=== PATIENT | male | born 1950 | race Caucasian/White ===

== ENCOUNTER 2019-12-03 15:09 | Emergency (ER) | payer OTHER, SELFPAY ==
[2019-12-03 15:11] VITALS: BMI 26.6
--- NOTE | 2019-12-03 15:11 | ED_ITS ---
Entered by Sunshine Sibley, acting as scribe for Documented by User: Cristian Novak DO 12/03/19 16:17 HPI - Chest Pain General: Chief Complaint: Chest Pain Stated Complaint: CHEST PAIN Time Seen by Provider: 12/03/19 15:11 Source: EMS Mode of arrival: EMS Limitations: no limitations History of Present Illness: HPI narrative: 69 yo male presents with chest pain. 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 pt was being seen [facility] when he started having chest pain when they gave him Nitro the pt went away. pt states then on the way to hospital he started having pain again and EMS put on Nitro paste. pt denies any other symptoms at this time. MD complaint: chest pain Onset (ago): day(s) (2 days ago) Timing of current episode: still present (better in the ED by Nitro and Nitro paste) Prior episodes: Yes Onset: during rest Pain location: substernal Pain radiation: none Severity: moderate Quality: tightness and heaviness Relieving factors: nitroglycerin Exacerbating factors: nothing Treatment prior to arrival: nitroglycerin (at the [facility]) Review of Systems General: Reports: 10 or more systems reviewed and unremarkable except in HPI and below PFSH ED PFSH: Statuses (acute, chronic, etc) shown below reflect problem list status as previously entered and may not be historically accurate Medical History Blindness (Acute) Surgical History History of amputation of both lower extremities (Acute) History of hernia surgery (Acute) History of tonsillectomy (Acute) Social History Smoking and tobacco status: former smoker Course Vital Signs: Vital signs: Vital Signs Temperature 98.1 F 12/03/19 19:32 Pulse Rate 71 12/03/19 19:32 Respiratory Rate 15 12/03/19 19:32 Blood Pressure 136/84 12/03/19 19:32 Pulse Oximetry 97 12/03/19 19:32 MDM - Chest Pain Lab Data: Labs: Lab Results 12/03/19 12/03/19 12/03/19 Range/Units 14:58 14:58 14:58 WBC 6.6 (4.0-10.0) 10^3/ uL RBC 2.93 L (4.1-5.3) 10^6/u L Hgb 8.9 L (11.7-16.6) g/dL Hct 28.2 L (42.0-52.0) % MCV 96.2 H (80-94) fL MCH 30.4 (28.0-34.0) pg MCHC 31.6 (30.0-36.0) g/dL RDW 14.6 (12.1-15.1) % Plt Count 232 (130-400) 10^3/c mm MPV 10.2 (7.4-10.4) fL Neut % (Auto) 56.2 % Lymph % (Auto) 32.8 % Granite % (Auto) 7.3 % Eos % (Auto) 2.9 % Baso % (Auto) 0.6 % Neut # (Auto) 3.7 (1.8-7.7) 10^3/u L Lymph # (Auto) 2.2 (0.8-4.8) 10^3/u L Granite # (Auto) 0.5 (0.2-0.9) 10^3/u L Eos # (Auto) 0.2 (0.0-0.8) 10^3/u L Baso # (Auto) 0.0 (0.0-0.1) 10^3/u L Nucleated RBC % (a uto) 0 % Nucleated RBCs # 0.0 /100WBC PT 14.70 H (10.5-13.3) SECO NDS INR 1.11 (0.8-1.2) Sodium 134 L (136-145) mmol/L Potassium 4.4 (3.5-5.1) mmol/L Chloride 97 L (98-107) mmol/L Carbon Dioxide 25 (22-29) mmol/L Anion Gap 16.4 (5-19) BUN 39 H (8-23) mg/dL Creatinine 2.4 H (0.7-1.2) mg/dL GFR Calculation 27.1 L (90-130) mL/min Glucose 181 H (74-106) mg/dL Calcium 9.9 (8.8-10.2) mg/Dl Total Bilirubin 0.3 (0.15-1.2) mg/dL AST 11 (0-40) U/L ALT 6 (0-41) U/L Alkaline Phosphata se 87 (40-130) IU/L Troponin T Baselin e (0-15) ng/mL Troponin T 120 Min eyak (0-15) ng/mL Delta Troponin T (0-10) ABS# NT-Pro-B Natriuret Pep 398 H (0-125) pg/mL Total Protein 9.0 H (6.6-8.7) g/dL Albumin 3.7 (3.5-5.2) g/dL Globulin 5.3 H (1.3-4.6) g/dL 12/03/19 12/03/19 Range/Units 14:58 18:32 WBC (4.0-10.0) 10^3/ uL RBC (4.1-5.3) 10^6/u L Hgb (11.7-16.6) g/dL Hct (42.0-52.0) % MCV (80-94) fL MCH (28.0-34.0) pg MCHC (30.0-36.0) g/dL RDW (12.1-15.1) % Plt Count (130-400) 10^3/c mm MPV (7.4-10.4) fL Neut % (Auto) % Lymph % (Auto) % Granite % (Auto) % Eos % (Auto) % Baso % (Auto) % Neut # (Auto) (1.8-7.7) 10^3/u L Lymph # (Auto) (0.8-4.8) 10^3/u L Granite # (Auto) (0.2-0.9) 10^3/u L Eos # (Auto) (0.0-0.8) 10^3/u L Baso # (Auto) (0.0-0.1) 10^3/u L Nucleated RBC % (a uto) % Nucleated RBCs # /100WBC PT (10.5-13.3) SECO NDS INR (0.8-1.2) Sodium (136-145) mmol/L Potassium (3.5-5.1) mmol/L Chloride (98-107) mmol/L Carbon Dioxide (22-29) mmol/L Anion Gap (5-19) BUN (8-23) mg/dL Creatinine (0.7-1.2) mg/dL GFR Calculation (90-130) mL/min Glucose (74-106) mg/dL Calcium (8.8-10.2) mg/Dl Total Bilirubin (0.15-1.2) mg/dL AST (0-40) U/L ALT (0-41) U/L Alkaline Phosphata se (40-130) IU/L Troponin T Baselin e 26 H (0-15) ng/mL Troponin T 120 Min eyak 25.83 H (0-15) ng/mL Delta Troponin T -0.17 L (0-10) ABS# NT-Pro-B Natriuret Pep (0-125) pg/mL Total Protein (6.6-8.7) g/dL Albumin (3.5-5.2) g/dL Globulin (1.3-4.6) g/dL Discharge Plan Discharge Patient Disposition: Home, Self-Care Clinical Impression: Chest pain Qualifiers: Chest pain type: unspecified Qualified Code(s): R07.9 - Chest pain, unspecified Condition: Stable Prescriptions: No Action cyclobenzaprine 10 mg Tablet 10 mg PO TID PRN (Reason: Pain) RF: 0 carvedilol 25 mg Tablet 12.5 mg PO BID RF: 0 cetirizine 10 mg Tablet 10 mg PO DAILY RF: 0 Calcium 500 500 mg calcium (1,250 mg) Tablet 500 mg PO TID RF: 0 calcitriol 0.5 mcg Capsule See Rx Instructions .ROUTE .COMPLEX RF: 0 epoetin alisa 10,000 unit/mL Solution See Rx Instructions .ROUTE .COMPLEX RF: 0 bisacodyl 5 mg Tablet 10 mg PO BEDTIME PRN (Reason: Constipation) RF: 0 brimonidine-timolol 0.2-0.5 % Drops 1 drp ophthalmic (eye) BID RF: 0 Vitamin D3 2,000 unit Tablet 2,000 unit PO DAILY RF: 0 senna 8.6 mg Tablet 17.2 mg PO BID RF: 0 pravastatin 40 mg Tablet 20 mg PO DAILY RF: 0 methadone 10 mg Tablet 20 mg PO BID RF: 0 clopidogrel 75 mg Tablet 75 mg PO DAILY RF: 0 allopurinol 100 mg Tablet 100 mg PO DAILY RF: 0 pentoxifylline 400 mg Tablet Extended Release 400 mg PO BID RF: 0 MagOx 400 mg (241.3 mg magnesium) Tablet 400 mg PO BID RF: 0 Novolog U-100 Insulin aspart 100 unit/mL Solution 50 unit SUBCUT TID RF: 0 omeprazole 20 mg Capsule,Delayed Release(Dr/Ec) 20 mg PO DAILY RF: 0 aspirin 81 mg Tablet,Chewable 81 mg PO DAILY RF: 0 Lasix 20 mg Tablet 10 mg PO QAM RF: 0 Discharge Orders: Discharge Order (Routine); Ordered 12/03/19 Ordered By: Tl Bowers Referrals: Soren Piña [Family Provider] - 4-7 days Discharge Diet: Advance as tolerated Discharge Activity: Resume usual activity Patient Instructions: Chest Pain (ED) Discharge Date/Time: 12/03/19 19:41 Coding Level of Care Code ED Manager Nuclear for Chg Fwd Exam Problem Focused Documented by User: Tl Bowers MD 12/03/19 19:43 HPI - Chest Pain General: Chief Complaint: Chest Pain Stated Complaint: CHEST PAIN Time Seen by Provider: 12/03/19 15:11 History of Present Illness: Associated symptoms: Deny abdominal pain, dyspnea, fever(s), nausea or vomiting Review of Systems Const: Denies: fever or chills Eyes: Denies: change in vision ENMT: Denies: throat pain or mouth pain Card: Reports: chest pain Resp: Denies: shortness of breath GI: Denies: abdominal pain, nausea, vomiting or diarrhea Musc: Denies: back pain or joint pain Skin/Breast: Denies: rash Neuro: Denies: headache or behavioral changes Psych: Denies: depression Endo: Denies: excessive urination Kip/Lymph: Denies: easy bruising All/Imm: Denies: hives PFSH ED PFSH: Statuses (acute, chronic, etc) shown below reflect problem list status as previously entered and may not be historically accurate Medical History Blindness (Acute) Surgical History History of amputation of both lower extremities (Acute) History of hernia surgery (Acute) History of tonsillectomy (Acute) Social History Smoking and tobacco status: former smoker Physical Exam Const: COMMON NORMALS: no apparent distress and healthy appearing HENMT: COMMON NORMALS: normocephalic and external nose normal HEAD & SCALP: normocephalic NOSE: external nose normal and no nasal discharge (nasal dischage) Eye: COMMON NORMALS: PERRL PUPIL: Yes PERRL Neck/C-Spine: COMMON NORMALS: full ROM and no lymphadenopathy Chest: COMMONS NORMALS: inspection of chest normal Resp: COMMON NORMALS: normal respiratory effort and clear to auscultation bilaterally AUSCULTATION: clear to auscultation bilaterally Cardio: COMMON NORMALS: regular rate and regular rhythm RATE: regular rate RHYTHM: regular rhythm GI: COMMON NORMALS: soft to palpation PALPATION: Yes soft Extremity: COMMON NORMALS: normal to inspection, full ROM and normal capillary refill Psych: COMMON NORMALS: mental status grossly normal and cooperative Skin: COMMON NORMALS: no rashes or lesions noted GENERAL SKIN EXAM: no rashes or lesions noted Course Vital Signs: Vital signs: Vital Signs Temperature 98.1 F 12/03/19 19:32 Pulse Rate 71 12/03/19 19:32 Respiratory Rate 15 12/03/19 19:32 Blood Pressure 136/84 12/03/19 19:32 Pulse Oximetry 97 12/03/19 19:32 MDM - Chest Pain MDM Narrative: Medical decision making narrative: Patient presents here with chest pain that is since resolved. Patient's been well-appearing here and repeat troponin shows no change. EKG is normal as well. Patient is requesting discharge I feel he is stable for discharge. He is to follow-up with primary care doctor in 3 to 5 days return to the ER if worsening. Lab Data: Labs: Lab Results 12/03/19 12/03/19 12/03/19 Range/Units 14:58 14:58 14:58 WBC 6.6 (4.0-10.0) 10^3/ uL RBC 2.93 L (4.1-5.3) 10^6/u L Hgb 8.9 L (11.7-16.6) g/dL Hct 28.2 L (42.0-52.0) % MCV 96.2 H (80-94) fL MCH 30.4 (28.0-34.0) pg MCHC 31.6 (30.0-36.0) g/dL RDW 14.6 (12.1-15.1) % Plt Count 232 (130-400) 10^3/c mm MPV 10.2 (7.4-10.4) fL Neut % (Auto) 56.2 % Lymph % (Auto) 32.8 % Granite % (Auto) 7.3 % Eos % (Auto) 2.9 % Baso % (Auto) 0.6 % Neut # (Auto) 3.7 (1.8-7.7) 10^3/u L Lymph # (Auto) 2.2 (0.8-4.8) 10^3/u L Granite # (Auto) 0.5 (0.2-0.9) 10^3/u L Eos # (Auto) 0.2 (0.0-0.8) 10^3/u L Baso # (Auto) 0.0 (0.0-0.1) 10^3/u L Nucleated RBC % (a uto) 0 % Nucleated RBCs # 0.0 /100WBC PT 14.70 H (10.5-13.3) SECO NDS INR 1.11 (0.8-1.2) Sodium 134 L (136-145) mmol/L Potassium 4.4 (3.5-5.1) mmol/L Chloride 97 L (98-107) mmol/L Carbon Dioxide 25 (22-29) mmol/L Anion Gap 16.4 (5-19) BUN 39 H (8-23) mg/dL Creatinine 2.4 H (0.7-1.2) mg/dL GFR Calculation 27.1 L (90-130) mL/min Glucose 181 H (74-106) mg/dL Calcium 9.9 (8.8-10.2) mg/Dl Total Bilirubin 0.3 (0.15-1.2) mg/dL AST 11 (0-40) U/L ALT 6 (0-41) U/L Alkaline Phosphata se 87 (40-130) IU/L Troponin T Baselin e (0-15) ng/mL Troponin T 120 Min eyak (0-15) ng/mL Delta Troponin T (0-10) ABS# NT-Pro-B Natriuret Pep 398 H (0-125) pg/mL Total Protein 9.0 H (6.6-8.7) g/dL Albumin 3.7 (3.5-5.2) g/dL Globulin 5.3 H (1.3-4.6) g/dL 12/03/19 12/03/19 Range/Units 14:58 18:32 WBC (4.0-10.0) 10^3/ uL RBC (4.1-5.3) 10^6/u L Hgb (11.7-16.6) g/dL Hct (42.0-52.0) % MCV (80-94) fL MCH (28.0-34.0) pg MCHC (30.0-36.0) g/dL RDW (12.1-15.1) % Plt Count (130-400) 10^3/c mm MPV (7.4-10.4) fL Neut % (Auto) % Lymph % (Auto) % Granite % (Auto) % Eos % (Auto) % Baso % (Auto) % Neut # (Auto) (1.8-7.7) 10^3/u L Lymph # (Auto) (0.8-4.8) 10^3/u L Granite # (Auto) (0.2-0.9) 10^3/u L Eos # (Auto) (0.0-0.8) 10^3/u L Baso # (Auto) (0.0-0.1) 10^3/u L Nucleated RBC % (a uto) % Nucleated RBCs # /100WBC PT (10.5-13.3) SECO NDS INR (0.8-1.2) Sodium (136-145) mmol/L Potassium (3.5-5.1) mmol/L Chloride (98-107) mmol/L Carbon Dioxide (22-29) mmol/L Anion Gap (5-19) BUN (8-23) mg/dL Creatinine (0.7-1.2) mg/dL GFR Calculation (90-130) mL/min Glucose (74-106) mg/dL Calcium (8.8-10.2) mg/Dl Total Bilirubin (0.15-1.2) mg/dL AST (0-40) U/L ALT (0-41) U/L Alkaline Phosphata se (40-130) IU/L Troponin T Baselin e 26 H (0-15) ng/mL Troponin T 120 Min eyak 25.83 H (0-15) ng/mL Delta Troponin T -0.17 L (0-10) ABS# NT-Pro-B Natriuret Pep (0-125) pg/mL Total Protein (6.6-8.7) g/dL Albumin (3.5-5.2) g/dL Globulin (1.3-4.6) g/dL Imaging Data^: CXR: Radiologist's impression: no acute abnormalities EKG Data^: EKG 1: Attestation: I personally reviewed and interpreted this EKG as follows: EKG interpretation date: 12/03/19 EKG interpretation time: 17:38 Interpretation: nsr hr [address] or t wave abnormalities qrs 91 qtc 423 Discharge Plan Discharge Patient Disposition: Home, Self-Care Clinical Impression: Chest pain Qualifiers: Chest pain type: unspecified Qualified Code(s): R07.9 - Chest pain, unspecified Condition: Stable Prescriptions: No Action cyclobenzaprine 10 mg Tablet 10 mg PO TID PRN (Reason: Pain) RF: 0 carvedilol 25 mg Tablet 12.5 mg PO BID RF: 0 cetirizine 10 mg Tablet 10 mg PO DAILY RF: 0 Calcium 500 500 mg calcium (1,250 mg) Tablet 500 mg PO TID RF: 0 calcitriol 0.5 mcg Capsule See Rx Instructions .ROUTE .COMPLEX RF: 0 epoetin alisa 10,000 unit/mL Solution See Rx Instructions .ROUTE .COMPLEX RF: 0 bisacodyl 5 mg Tablet 10 mg PO BEDTIME PRN (Reason: Constipation) RF: 0 brimonidine-timolol 0.2-0.5 % Drops 1 drp ophthalmic (eye) BID RF: 0 Vitamin D3 2,000 unit Tablet 2,000 unit PO DAILY RF: 0 senna 8.6 mg Tablet 17.2 mg PO BID RF: 0 pravastatin 40 mg Tablet 20 mg PO DAILY RF: 0 methadone 10 mg Tablet 20 mg PO BID RF: 0 clopidogrel 75 mg Tablet 75 mg PO DAILY RF: 0 allopurinol 100 mg Tablet 100 mg PO DAILY RF: 0 pentoxifylline 400 mg Tablet Extended Release 400 mg PO BID RF: 0 MagOx 400 mg (241.3 mg magnesium) Tablet 400 mg PO BID RF: 0 Novolog U-100 Insulin aspart 100 unit/mL Solution 50 unit SUBCUT TID RF: 0 omeprazole 20 mg Capsule,Delayed Release(Dr/Ec) 20 mg PO DAILY RF: 0 aspirin 81 mg Tablet,Chewable 81 mg PO DAILY RF: 0 Lasix 20 mg Tablet 10 mg PO QAM RF: 0 Discharge Orders: Discharge Order (Routine); Ordered 12/03/19 Ordered By: Tl Bowers Referrals: Soren Piña [Family Provider] - 4-7 days Discharge Diet: Advance as tolerated Discharge Activity: Resume usual activity Patient Instructions: Chest Pain (ED) Discharge Date/Time: 12/03/19 19:41 Coding Level of Care Code ED Manager Nuclear for Doris Fwmax Exam Problem Focused
[2019-12-03 15:15] VITALS: BP 110/68; PULSE 75; RESP 18; TEMP 37.2; O2SAT 98
--- NOTE | 2019-12-03 15:23 | XR_ITS ---
WS: [id number] PORTABLE CHEST HISTORY: angina COMPARISON: 03/07/2018 Areas of atelectasis at the lung bases. No pneumonia. No pleural effusion or pneumothorax. Cardiac size: Mildly enlarged cardiac silhouette. Mediastinum/Aorta: Mild atherosclerosis aorta. No osseous abnormality seen. XR/XR chest 1V portable [id number] IMPRESSION: Mild atelectasis at the lung bases. No acute cardiopulmonary disease.
--- NOTE | 2019-12-03 15:23 | ECG_ITS ---
Measurements Intervals [place] Rate: 74 P: 78 OR: 200 QRS: -20 QRSD: 94 T: 30 QT: 390 QTc: 434 SINUS RHYTHM MODERATE VOLTAGE CRITERIA FOR LVH, CONSIDER NORMAL VARIANT [MEETS CRITERIA IN ONE OF: R(aVL), S(V1), R(V5), R(V5/V6)+S(V1)] Compared to ECG 03/02/2018 16:11:08 No significant changes Electronically Signed On 12-03-2019 19:22:21 ORTHOPEDICS NURSE by Miguelina Dash M.D. [id number]
[2019-12-03] MEDS: sodium chloride 0.9% 500 ML 999 ML IV (15:50)
[2019-12-03] MEDS: sodium chloride 0.9% 1,000 ML 999 ML IV (15:50)
[2019-12-03 16:59] LABS: Troponin(5th) Baseline 26 ng/mL (0-15)
[2019-12-03 17:02] LABS: Basophils % 0.6 %; Eosinophils # 0.2 10^3/uL (0.0-0.8); Eosinophils % 2.9 %; Hematocrit 28.2 % (42.0-52.0); Hemoglobin 8.9 g/dL (11.7-16.6); Lymphocytes # 2.2 10^3/uL (0.8-4.8); Lymphocytes % 32.8 %; Mean Corpuscular HGB Conc 31.6 g/dL (30.0-36.0); Mean Corpuscular Hemoglobin 30.4 pg (28.0-34.0); Mean Corpuscular Volume 96.2 fL (80-94); Mean Platelet Volume 10.2 fL (7.4-10.4); Monocytes # 0.5 10^3/uL (0.2-0.9); Monocytes % 7.3 %; Neutrophils # 3.7 10^3/uL (1.8-7.7); Neutrophils % 56.2 %; Nucleated Red Blood Cells % 0 %; Platelet Count 232 10^3/cmm (130-400); Red Blood Count 2.93 10^6/uL (4.1-5.3); Red Cell Distribution Width 14.6 % (12.1-15.1); White Blood Count 6.6 10^3/uL (4.0-10.0)
[2019-12-03 17:08] LABS: Alanine Aminotransferase 6 U/L (0-41); Albumin Level 3.7 g/dL (3.5-5.2); Alkaline Phosphatase 87 IU/L (40-130); Anion Gap 16.4 (5-19); Aspartate Amino Transferase 11 U/L (0-40); Blood Urea Nitrogen 39 mg/dL (8-23); Calcium 9.9 mg/Dl (8.8-10.2); Carbon Dioxide 25 mmol/L (22-29); Chloride 97 mmol/L (98-107); Globulin 5.3 g/dL (1.3-4.6); Glomerular Filtration Rate 27.1 mL/min (90-130); Glucose 181 mg/dL (74-106); NT Pro B Type Natriuretic Pept 398 pg/mL (0-125); Potassium 4.4 mmol/L (3.5-5.1); Sodium 134 mmol/L (136-145); Total Bilirubin 0.3 mg/dL (0.15-1.2)
[2019-12-03 17:24] LABS: INR 1.11 (0.8-1.2)
[2019-12-03 19:08] LABS: Troponin 5 2HR 25.83 ng/mL (0-15)
[2019-12-03 19:10] LABS: Troponin 5 2HR Delta -0.17 ABS# (0-10)
[2019-12-03 19:32] VITALS: BP 136/84; PULSE 71; RESP 15; TEMP 36.7; O2SAT 97
--- NOTE | 2019-12-03 21:23 | ECG_ITS ---
Measurements Intervals [place] Rate: 74 P: 243 [place]: 201 QRS: -9 QRSD: 91 T: 40 QT: 395 QTc: 440 SINUS RHYTHM Compared to ECG 03/02/2018 16:11:08 No significant changes Electronically Signed On 12-03-2019 19:23:34 PATROL MAN by Miguelina Dash M.D. [id number]
== END 2019-12-03 19:41 | disposition home or self-care (01) ==
PROVIDERS: Family Medicine; Emergency Provider Emergency Medicine; Family Provider Internal Medicine
DX: R07.9 Chest pain, unspecified (principal); Z79.02 Long term (current) use of antithrombotics/antiplatelets; Z79.4 Long term (current) use of insulin; Z79.82 Long term (current) use of aspirin; Z87.891 Personal history of nicotine dependence; Z89.612 Acquired absence of left leg above knee; Z89.611 Acquired absence of right leg above knee
CPT/HCPCS: 36415; 71045; 80053; 83880; 84484; 85025; 85610; 93005; 96360; 96361; 99282; J7030; J7040

== ENCOUNTER 2020-02-06 09:38 | Outpatient (CLI) | payer OTHER, SELFPAY ==
--- NOTE | 2020-02-06 10:03 | ECG_ITS ---
NAME OF STUDY: LEXISCAN SESTAMIBI STRESS TEST INDICATION: Chest Pain; Shortness of Breath, PROCEDURE: At the baseline, the EKG revealed normal sinus rhythm with a left axis deviation. No significant ST-T changes.. The baseline blood pressure was 141/98 mm Hg with a heart rate of 80 beats/min. Lexiscan was infused over a period of 20 seconds. A total of 0.4 milligrams of Lexiscan was infused. The stress phase was continued for a total of 5 minutes. Heart rate at the end of the stress phase was 84 with a blood pressure 182/98. The EKG at the peak infusion revealed no significant changes. Sestamibi was injected 20 seconds after the Lexiscan infusion. Blood pressure at the end of the recovery phase was 165/94 with a heart rate of 84 per minute. CONCLUSION: 1. No significant EKG changes with the LexiScan infusion 2. No LexiScan induced chest pain or cardiac arrhythmia 3. Normal blood pressure and heart rate response 4. Sestamibi/sestamibi perfusion scan pending; see separate report. Electronically Signed On 02-15-2020 14:29:55 CDT by Steve Ramachandran M.D. [id number]
--- NOTE | 2020-02-06 10:04 | NMCV_ITS ---
NM braulio perf SPECT r/s* [id number] Juan Antonio Das Age: 69 Gender: M : 1950 Exam Date: 02/06/2020 10:59 Ordering Phys: Steve Ramachandran MD ([email or web address]) Technologist: MATTHIEU Del Castillo Exam Location: [facility] Indications: CHEST PAIN STRESS TEST Please see separate stress test report in [facility] for full findings IMAGE PROTOCOL Rest/Stress 1 Lexiscan Day Radiopharmaceutical Dose (mCi) Administration Site Administered by Rest: Tc-99m 10.1 IV MATTHIEU Franz Sestamibi Stress:Tc-99m 31.6 IV MATTHIEU Del Castillo Sestamilaine Rest: 06-Feb-2020 60 Discovery 630 Stress: 06-Feb-2020 30 Discovery 630 0.4mg Lexiscan. Supine position only as patient was unable to lay prone. SPECT RESULTS Technical Quality: Excellent Raw Data Analysis: Normal Image Corrections: No attenuation or motion correction applied Summed Stress Score: 3 Summed Rest Score: 0 Summed Difference Score: 3 PERFUSION FINDINGS Small to moderate area of decreased tracer uptake in the mid inferolateral and apical lateral wall segments. Some reversibility was noted in these regions. FUNCTIONAL RESULTS (calculated via Gated SPECT) Stress Image LV EF (%): 62 Stress EDV (mL):115 TID: 0.99 Stress ESV (mL):44 FUNCTIONAL FINDINGS: Segmental wall motion analysis revealed mild hypokinesia of the apex IMPRESSIONS 1. Myocardial perfusion imaging revealing small to moderate area of decreased tracer uptake in the mid inferolateral and apical lateral region, with some reversibility, suggestive of myocardial scarring with ischemia in the distribution of the left circumflex artery. 2. Normal LV ejection fraction of 62%. 3. LV wall motion analysis revealing mild hypokinesia of the LV apex. 4. LV volume, upper limit of normal. No similar previous studies are available for comparison. Dr Steve Ramachandran MD FACC (Electronically Signed) Final Date: 06 February 2020 14:27 S
--- NOTE | 2020-02-06 10:07 | USCV_ITS ---
Juan Antonio Das Age: 69 Gender: M : 1950 Exam Date: 02/06/2020 12:54 Ordering Phys: Steve Ramachandran MD ([email or web address]) Technologist: Preeti Zazueta [place] [facility] [place]: . CHEST PAIN AT REST. BP: / HR: 82 Rhythm: Sinus Technical Quality: Adequate MEASUREMENTS (Male / Female) Normal Values 2D ECHO LV Diastolic Diameter PLAX 4.6 cm 4.2 - 5.9 / 3.9 - 5.3 cm LV Systolic Diameter PLAX 3.3 cm LV Chamber Size 4.2 cm IVS Diastolic Thickness 1.5 cm 0.6 - 1.0 / 0.6 - 0.9 cm IVS Systolic Thickness 1.7 cm LVPW Diastolic Thickness 0.6 cm 0.6 - 1.0 / 0.6 - 0.9 cm LVPW Systolic Thickness 1.7 cm RV Chamber Size 3.8 cm LVOT Diameter 2.0 cm LV Ejection Fraction 2D Teich 53.6 % LV Ejection Fraction MOD 2C 55.4 % LV Ejection Fraction 2C AL 57.4 % LA Diameter 3.9 cm LA Width 3.1 cm LA Height 3.8 cm RA Width 3.8 cm RA Height 3.6 cm Aorta at Sinotubular Diameter 3.5 cm M-MODE LV Diastolic Diameter MM 4.7 cm 4.2 - 5.9 / 3.9 - 5.3 cm LV Systolic Diameter MM 3.4 cm LV Ejection Fraction MM Teich 54.7 % IVS Diastolic Thickness MM 1.4 cm 0.6 - 1.0 / 0.6 - 0.9 cm IVS Systolic Thickness MM 1.7 cm LVPW Diastolic Thickness MM 1.5 cm 0.6 - 1.0 / 0.6 - 0.9 cm LVPW Systolic Thickness MM 2.2 cm RV Diastolic Diameter MM 1.1 cm Aortic Annulus Diameter 3.8 cm LA Ao Ratio MM 1.0 MV E Point Septal Separation 0.7 cm DOPPLER AV Peak Velocity 118.0 cm/s LVOT Peak Velocity 83.0 cm/s AV Area Cont Eq vti 2.5 cm squared AV Area Cont Eq pk 2.2 cm squared MV Area PHT 8.5 cm squared Mitral E to A Ratio 0.6 MV E' Velocity 7.0 cm/s Mitral E to MV E' Ratio 13.4 Mitral E to LV E' Lateral Ratio 10.3 Mitral E to LV E' Septal Ratio 19.4 TR Peak Velocity 144.8 cm/s TR Peak Gradient 8.4 mmHg TR Mean Velocity 82.2 cm/s TR Mean Gradient 3.4 mmHg TR Velocity Time Integral 35.9 cm TV Peak E Velocity 86.0 cm/s Right Atrial Pressure 3.0 mmHg Pulmonary Artery Systolic Pressu 11.4 mmHg PV Peak Velocity 74.0 cm/s RV Acceleration Time 0.1 s RV Ejection Time 0.3 s RV AcT/ET 0.3 FINDINGS Left Ventricle Normal left ventricular size and systolic function, EF 61 %. No regional wall motion abnormalities. Right Ventricle The right ventricle is normal in size and function. Right Atrium The right atrium is normal in size. Left Atrium The left atrium is normal in size. Mitral Valve Thickened mitral valve. Mild mitral annular calcification. Aortic Valve No gross abnormalities noted Tricuspid Valve Trace tricuspid valve regurgitation. Pulmonic Valve Structurally normal pulmonic valve without significant stenosis. There is no pulmonic regurgitation. Pericardium Normal pericardium without effusion. Aorta Normal ascending aorta dimension. CONCLUSIONS Normal left ventricular size and systolic function, EF 61 %. No regional wall motion abnormalities. Thickened mitral valve. Mild mitral annular calcification. Trace tricuspid valve regurgitation. There is no pericardial effusion. There are no intracardiac masses. No similar previous studies are available for comparison Dr Steve Ramachandran MD FAC (Electronically Signed) Final Date: 06 February 2020 14:50 S
[2020-02-06] MEDS: regadenoson 0.4 Mg/5 ml Syringe IVP (11:46)
[2020-02-06] MEDS: ondansetron 2 mg/ML SDV 2 mL 4 MG IVP (11:51)
[2020-02-06 12:01] VITALS: BP 168/94; PULSE 84
== END 2020-02-06 09:39 | disposition home or self-care (01) ==
LOC: CDL 09:40
PROVIDERS: Family Provider Internal Medicine; PCP Internal Medicine; Visit Provider Internal Medicine Cardiovascular Disease
DX: I08.1 Rheumatic disorders of both mitral and tricuspid valves (principal); I70.0 Atherosclerosis of aorta; R07.9 Chest pain, unspecified; R06.02 Shortness of breath
CPT/HCPCS: 78452; 93017; 93306; 96374; 96375; A9500; J2405; J2785

== ENCOUNTER 2020-10-09 18:25 | Outpatient (CLI) | payer OTHER, SELFPAY ==
[2020-10-09 18:39] LABS: Protein Urine 1+ (Negative); Urine Appearance Hazy (CLEAR); Urine Color Yellow (Yellow); pH Urine 5 (5-7)
[2020-10-09 18:40] LABS: Add Urine Microscopic? YES; Bilirubin Urine Neg (Negative); Blood Urine 3+ (Negative); Glucose Urine UA 4+ (Normal); Ketones Urine Negative (Negative); Leukocyte Esterase Urine 1+ (Negative); Nitrate Urine Negative (Negative); Urobilinogen Urine Norm (Negative)
[2020-10-09 18:46] LABS: Add Urine Culture? Yes; Bacteria Urine 1+ /hpf; RBC Urine 25-40 /hpf (0-2); Squamous Epithelial Cell Urine 0-4 /hpf (0-5); WBC Urine 0-4 /hpf (0-5)
== END 2020-10-09 18:26 | disposition home or self-care (01) ==
PROVIDERS: PCP Internal Medicine; Visit Provider Family Medicine
DX: Z01.89 Encounter for other specified special examinations (principal)
CPT/HCPCS: 81001; 87077; 87086; 87186

== ENCOUNTER 2021-03-07 20:24 | Emergency (ER) | payer OTHER, SELFPAY ==
[2021-03-07 20:44] VITALS: BP 146/80; PULSE 92; RESP 16; TEMP 37.3; O2SAT 98; BMI 26.4
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
[2021-03-07] MEDS: neomycin-poly-bacitracin oint 0.9 gm Pkt 1 APPLIC TOPICAL (23:00)
[2021-03-07] MEDS: cephALEXin 500 mg Capsule PO (23:00)
[2021-03-07 23:20] VITALS: BP 137/80; PULSE 70; RESP 18
--- NOTE | 2021-03-07 23:32 | PC.NURSE ---
Wounds were cleaned, and antibiotic ointment was applied, then xeroform dressing on all fingers then each finger was wrapped in kerlex. Patient was educated on how to do dressing changes at home until he was able to see wound care for further instructions
--- NOTE | 2021-03-08 11:16 | DCPLANNER ---
bed manager had message to schedule a follow up appointment for patient with Wound Care. bed manager called [facility], spoke with Lizbeth, was told that patient may be being seen at [facility] with a CT authorization. bed manager called patient to ask patient which clinic he wanted to be referred to. Patient stated that he would like to be seen by Dr. Wilhelm at [facility]. bed manager emailed patients information will be reviewed to determine if patient can be seen by Dr. Wilhelm. Patients information will be reviewed. bed manager was told that CT will contact patient about appointment information.
== END 2021-03-07 23:37 | disposition home or self-care (01) ==
PROVIDERS: Emergency Provider Physician Assistant; PCP Internal Medicine
DX: T23.242A Burn of second degree of multiple left fingers (nail), including thumb, initial encounter (principal); Z79.02 Long term (current) use of antithrombotics/antiplatelets; Z79.82 Long term (current) use of aspirin; Z79.4 Long term (current) use of insulin; Z89.512 Acquired absence of left leg below knee; Z89.511 Acquired absence of right leg below knee; I10 Essential (primary) hypertension; E11.9 Type 2 diabetes mellitus without complications; E78.5 Hyperlipidemia, unspecified; Z87.891 Personal history of nicotine dependence; X11.8XXA Contact with other hot tap-water, initial encounter
CPT/HCPCS: 16020; 99283; A6446

== ENCOUNTER 2021-04-15 10:30 | Inpatient (IN) | payer OTHER, MEDICARE, SELFPAY ==
[2021-04-15] VITALS (7 sets, daily range): BP systolic 131–192; BP diastolic 62–98; PULSE 72–90; RESP 15–22; TEMP 36.6–37.6; O2SAT 92–100; BMI 27.1
--- NOTE | 2021-04-15 10:56 | W.ED.MALEGU ---
HPI - Male Genitourinary General: Chief complaint: Urogenital-Male Stated complaint: BLOOD IN CATH Time Seen by Provider: 04/15/21 10:40 History of Present Illness: HPI Narrative: 70-year-old male with a history of diabetes peripheral artery disease neurogenic bladder. He has an indwelling suprapubic Urena. Urena was changed yesterday and he had some blood-tinged urine after it was changed overnight it became grossly hematuric. He denies any flank pain. No fever sweats or chills. No nausea vomiting or diarrhea. Complaint: dysuria Onset (ago): hour(s) Duration: constant Relieving factors: none Exacerbating factors: none Context: indwelling catheter Associated symptoms: Reports hematuria; Deny discharge, dysuria, fevers/chills, nausea, rash, swelling, urinary incontinence, urinary retention, mass or vomiting Review of Systems Const: Denies: fever(s), chills, body aches, change in appetite, fatigue or malaise ENMT: Denies: throat pain, ear or mastoid pain, nasal discharge or nasal congestion Card: Denies: chest pain, edema, dyspnea on exertion or orthopnea Resp: Denies: dyspnea, productive cough or non-productive cough GI: Denies: nausea or vomiting : Reports: hematuria; Denies: dysuria or urinary incontinence Skin/Breast: Denies: rash or pruritus [facility] ED PFSH: Medical History (Updated 04/15/21 @ 19:57 by Torie Gonzales MD) Abnormal cardiovascular stress test Anemia Below-knee amputation august 2019; left 2005 Benign essential HTN for 30 yrs Blind right eye Blindness Blindness and low vision Chest pain at rest The EKG from 12/03/2019 revealed normal sinus rhythm with normal ST-T's. Minimal left axis deviation. Depression Diabetes mellitus, type II Dyslipidemia Indwelling Urena catheter calcification Peripheral arterial disease Sleep apnea Type 2 diabetes mellitus treated with insulin Surgical History History of amputation of both lower extremities History of hernia surgery History of tonsillectomy Social History Smoking and tobacco status: former smoker Physical Exam Const: COMMON NORMALS: no acute distress GENERAL APPEARANCE: cooperative and comfortable ORIENTATION/CONSCIOUSNESS: Yes awake, Yes oriented to person, Yes oriented to place and Yes oriented to time HENMT: COMMON NORMALS: normocephalic, atraumatic and hearing grossly normal bilaterally HEAD & SCALP: normocephalic and atraumatic Neck/C-Spine: COMMON NORMALS: no JVD Resp: COMMON NORMALS: normal respiratory effort, No retractions, No use of accessory muscles and clear to auscultation bilaterally AUSCULTATION: clear to auscultation bilaterally Cardio: COMMON NORMALS: no JVD, regular rate, regular rhythm and No murmurs present (Cardio) RATE: regular rate RHYTHM: regular rhythm GI: COMMON NORMALS: Soft to palpation and No hepatosplenomegaly present AUSCULTATION: Yes normoactive bowel sounds PALPATION: Yes Soft to palpation, No Tenderness to palpation present (GI), No Guarding due to palpation present (GI) and Yes No hepatosplenomegaly present Extremity: COMMON NORMALS: normal to inspection, capillary refill normal, no clubbing, cyanosis or edema, no calf tenderness and no pedal edema Neuro: SENSORIUM/ORIENTATION: Yes oriented to person, Yes oriented to place and Yes oriented to time Skin: COMMON NORMALS: no rashes or lesions noted GENERAL SKIN EXAM: no rashes or lesions noted Course Vital Signs: Vital signs: Vital Signs Temperature 98.7 F 04/16/21 08:00 Pulse Rate 75 04/16/21 08:00 Respiratory Rate 18 04/16/21 08:00 Blood Pressure 157/86 04/16/21 08:00 Pulse Oximetry 98 04/16/21 08:00 MDM - Male MDM Narrative: Medical decision making narrative: Hematuria improved after irrigation. Patient is fairly significant anemia but it is a chronic problem encourage him to follow-up next week with his primary care doctor repeat hemoglobin also to follow-up with urologist to reevaluate he does have signs of a little bladder infection with positive leukocyte esterase. We will start him on some oral antibiotics. Lab Data: Labs: Lab Results 04/15/21 04/15/21 04/15/21 Range/Units 11:10 11:10 11:10 WBC 6.2 (4.0-10.0) 10^3/ uL RBC 2.62 L (4.1-5.3) 10^6/u L Hgb 8.7 L (11.7-16.6) g/dL Hct 26.7 L (42.0-52.0) % MCV 101.9 H (80-94) fL MCH 33.2 (28.0-34.0) pg MCHC 32.6 (30.0-36.0) g/dL RDW 15.5 H (12.1-15.1) % Plt Count 126 L (130-400) 10^3/c mm MPV 10.2 (7.4-10.4) fL Neut % (Auto) 59.7 % Lymph % (Auto) 27.8 % Irion % (Auto) 8.1 % Eos % (Auto) 3.4 % Baso % (Auto) 0.8 % Neut # (Auto) 3.67 (1.8-7.7) 10^3/u L Lymph # (Auto) 1.7 (0.8-4.8) 10^3/u L Irion # (Auto) 0.5 (0.2-0.9) 10^3/u L Eos # (Auto) 0.2 (0.0-0.8) 10^3/u L Baso # (Auto) 0.1 (0.0-0.1) 10^3/u L Nucleated RBC % (a uto) 0 % Nucleated RBCs # 0.0 /100WBC Sodium 138 (136-145) mmol/L Potassium 5.4 H (3.5-5.1) mmol/L Chloride 107 (98-107) mmol/L Carbon Dioxide 20 L (22-29) mmol/L Anion Gap 16.4 (5-19) BUN 55 H (8-23) mg/dL Creatinine 3.4 H (0.7-1.2) mg/dL GFR Calculation 18.0 L (90-130) mL/min Glucose 168 H (65-115) mg/dL Calculated Osmolal ity 305 H (285-295) mOsm/k g Calcium 9.2 (8.5-10.5) mg/dL Urine Color Red (Yellow) Urine Appearance Turbid (CLEAR) Urine pH 5 (5-7) Ur Specific Gravit y 1.010 (1.005-1.030) Urine Protein 2+ H (Negative) Urine Glucose (UA) 1+ (Normal) Urine Ketones Negative (Negative) Urine Blood Neg (Negative) Urine Nitrate Negative (Negative) Urine Bilirubin Neg (Negative) Urine Urobilinogen Norm (Negative) mg/dL Ur Leukocyte Chika ase 1+ H (Negative) Urine RBC Too numerous to c nt H (0-2) /hpf Urine WBC 0-4 H (0-5) /hpf Ur Squamous Epith Cells 0-4 H (0-5) /hpf Amorphous Sediment Not Reportable Urine Bacteria 1+ H (NONE) /hpf Discharge Plan Discharge Patient Disposition: Placed in Observation Admit Provider: Torie Gonzales Clinical Impression: Hematuria, Urinary tract infection, Chronic indwelling Urena catheter Discharge Diet: Usual diet Discharge Activity: Resume usual activity Coding Level of Care Code ED It Project Manager for Chg Fwd Exam Comprehensive
[2021-04-15 11:23] LABS: Basophils # 0.1 10^3/uL (0.0-0.1); Basophils % 0.8 %; Eosinophils # 0.2 10^3/uL (0.0-0.8); Eosinophils % 3.4 %; Hematocrit 26.7 % (42.0-52.0); Hemoglobin 8.7 g/dL (11.7-16.6); Lymphocytes # 1.7 10^3/uL (0.8-4.8); Lymphocytes % 27.8 %; Mean Corpuscular HGB Conc 32.6 g/dL (30.0-36.0); Mean Corpuscular Hemoglobin 33.2 pg (28.0-34.0); Mean Corpuscular Volume 101.9 fL (80-94); Mean Platelet Volume 10.2 fL (7.4-10.4); Monocytes # 0.5 10^3/uL (0.2-0.9); Monocytes % 8.1 %; Neutrophils # 3.67 10^3/uL (1.8-7.7); Neutrophils % 59.7 %; Nucleated Red Blood Cells % 0 %; Platelet Count 126 10^3/cmm (130-400); Red Blood Count 2.62 10^6/uL (4.1-5.3); Red Cell Distribution Width 15.5 % (12.1-15.1); White Blood Count 6.2 10^3/uL (4.0-10.0)
[2021-04-15 11:25] LABS: Add Urine Microscopic? YES; Bilirubin Urine Neg (Negative); Blood Urine Neg (Negative); Glucose Urine UA 1+ (Normal); Ketones Urine Negative (Negative); Leukocyte Esterase Urine 1+ (Negative); Nitrate Urine Negative (Negative); Protein Urine 2+ (Negative); Urine Appearance Turbid (CLEAR); Urine Color Red (Yellow); Urobilinogen Urine Norm (Negative); pH Urine 5 (5-7)
[2021-04-15 11:43] LABS: Add Urine Culture? Yes; Bacteria Urine 1+ /hpf; RBC Urine TOO NUMEROUS TO CNT /hpf (0-2); Squamous Epithelial Cell Urine 0-4 /hpf (0-5); WBC Urine 0-4 /hpf (0-5)
[2021-04-15 11:57] LABS: Anion Gap 16.4 (5-19); Blood Urea Nitrogen 55 mg/dL (8-23); Calcium 9.2 mg/dL (8.5-10.5); Carbon Dioxide 20 mmol/L (22-29); Chloride 107 mmol/L (98-107); Glucose 168 mg/dL (65-115); Osmolality Calculated 305 mOsm/kg (285-295); Potassium 5.4 mmol/L (3.5-5.1); Sodium 138 mmol/L (136-145)
[2021-04-15] MEDS: sodium chloride 0.9% 1,000 ML 999 ML IV (12:31)
--- NOTE | 2021-04-15 19:52 | PM.HP ---
Providers/Chief Complaint Admitting Physician: Torie Gonzales MD Primary Care Provider: Brian Piña Chief Complaint: BLOOD IN CATH History of Present Illness Juan Antonio Das is a 70 year old male with past medical history as outlined below who has a chronic indwelling suprapubic catheter since at least 2011 that gets changed every 3 to 4 weeks by his home health nurse. He is presenting from home today with chief complaints of hematuria. His nurse came to change his catheter yesterday, insertion was difficult and attempted 2-3 times and ultimately catheter was downsized for insertion. This morning when he woke up he noticed brian blood and presented to the emergency room. Here UA was positive. There is noted to be some slight discharge around his suprapubic catheter insertion site. Creatinine is higher than baseline and he has other electrolyte abnormalities by way of hyperkalemia, anemia and VIV. Denies any fever at home. Suspects he may have had a recent UTI, was supposed to get a UA and urine culture however this has not happened yet. Review of Systems General: Reports: 10 or more systems reviewed and unremarkable except in HPI and below Const: Denies: fever(s), chills or body aches Eyes: Denies: change in vision, blurry vision or photophobia ENMT: Reports: hoarseness; Denies: throat pain, enlarged tonsils, odynophagia or nasal congestion Card: Denies: chest pain, palpitations, irregular heart rhythm, edema, swelling of feet/ankles, lightheadedness, pre-syncope, dyspnea on exertion or orthopnea Resp: Denies: dyspnea, productive cough, non-productive cough, wheezing, stridor, pain on inspiration, change in phlegm color, hemoptysis or chest congestion GI: Denies: abdominal pain, nausea, vomiting, hematemesis, coffee ground emesis, dysphagia, heartburn, diarrhea, constipation, GI cramping, change in stool character, hematochezia or melena : Denies: flank pain, dysuria, urinary frequency, urinary urgency, urinary hesitancy or hematuria Musc: Denies: neck pain, back pain, extremity pain, joint swelling, joint warmth or deformity Neuro: Denies: headache(s), numbness in extremities, weakness in extremities, sensory changes, difficulty walking, frequent falls, dizziness, vertigo, behavioral changes, Slurred speech present or seizure-like activity Psych: Denies: anxiety, depression, suicidal ideation or homicidal ideation Endo: Denies: polyuria, polydipsia, tired all the time, cold intolerance or hot flashes Kip/Lymph: Denies: easy bruising or easy bleeding Medications/Allergies Home Medications Medication Instructions Recorded Confirmed Last Taken Type allopurinol 100 mg PO DAILY 12/03/19 04/15/21 04/14/21 History aspirin 81 mg PO DAILY 12/03/19 04/15/21 04/14/21 History bisacodyl 10 mg PO BEDTIME PRN 12/03/19 04/15/21 12/02/19 History brimonidine-timolol 1 drp OPHTHALMIC (EYE) BID 12/03/19 04/15/21 04/14/21 History calcitriol See Rx Instructions .ROUTE .COMPLEX 12/03/19 04/15/21 04/13/21 History calcium carbonate [Calcium 500] 500 mg PO TID 12/03/19 04/15/21 04/14/21 History cetirizine 10 mg PO DAILY 12/03/19 04/15/21 04/14/21 History cholecalciferol (vitamin D3) 2,000 unit PO DAILY 12/03/19 04/15/21 04/14/21 History [Vitamin D3] cyclobenzaprine 10 mg PO TID PRN 12/03/19 04/15/21 12/02/19 History epoetin alisa See Rx Instructions .ROUTE .COMPLEX 12/03/19 04/15/21 04/14/21 History insulin aspart U-100 [Novolog 50 unit SUBCUT QID 12/03/19 04/15/21 04/14/21 History U-100 Insulin aspart] magnesium oxide [MagOx] 400 mg PO BID 12/03/19 04/15/21 04/14/21 History omeprazole 20 mg PO DAILY 12/03/19 04/15/21 04/14/21 History pentoxifylline 400 mg PO BID 12/03/19 04/15/21 04/14/21 History sennosides [senna] 17.2 mg PO BID 12/03/19 04/15/21 04/14/21 History carvedilol 25 mg tablet 25 mg PO BID 90 Days #180 tab 10/28/20 04/15/21 04/14/21 Rx clopidogrel 75 mg tablet 75 mg PO DAILY 30 Days #30 tab 10/28/20 04/15/21 04/14/21 Rx furosemide 20 mg tablet 10 mg PO QAM 180 Days #90 tab 10/28/20 04/15/21 04/14/21 Rx pravastatin 40 mg tablet 20 mg PO DAILY 30 Days #30 tab 10/28/20 04/15/21 04/14/21 Rx cqrkvspu-gztawquytXc-alyzfhzmV 1 applic TOPICAL BID #30 g 03/07/21 04/15/21 Unknown Rx [Triple Antibiotic] ciprofloxacin HCl [Cipro] 500 mg PO BID #14 tab 04/15/21 Unknown Rx methadone 5 mg PO QID 04/15/21 04/15/21 04/14/21 History Allergies Allergy/AdvReac Type Severity Reaction Status Date / Time doxycycline Allergy Unknown Unverified 08/07/20 07:26 Penicillins Allergy Unknown Verified 12/03/19 15:22 PFSH Acute PFSH: Medical History (Updated 04/15/21 @ 19:57 by Torie Gonzales MD) Abnormal cardiovascular stress test Anemia Below-knee amputation august 2019; left 2005 Benign essential HTN for 30 yrs Blind right eye Blindness Blindness and low vision Chest pain at rest The EKG from 12/03/2019 revealed normal sinus rhythm with normal ST-T's. Minimal left axis deviation. Depression Diabetes mellitus, type II Dyslipidemia Indwelling Urena catheter calcification Peripheral arterial disease Sleep apnea Type 2 diabetes mellitus treated with insulin Surgical History History of amputation of both lower extremities History of hernia surgery History of tonsillectomy Social History Smoking and tobacco status: former smoker Vitals/I&O/Wt Last Vital Signs Temp 99.0 F 04/15/21 17:00 Pulse 72 04/15/21 17:00 Resp 17 04/15/21 17:00 BP 132/62 04/15/21 17:00 Pulse Ox 94 04/15/21 17:00 04/15/21 04/15/21 04/15/21 06:59 14:59 22:59 Intake Total 1000 / 1000 120 / 1120 Output Total 1150 / 1150 Balance 1000 / 1000 -1030 / -30 Weight last 48 hrs Weight 88.451 kg Physical Exam Narrative: EXAM NARRATIVE: General: No acute distress, AO x3 HEENT: PERRLA, legally blind in Chest: Normal vesicular breath sounds, no added sounds, equal good air entry bilaterally CVS: S1-S2 regular, no murmurs, no tachycardia, no gallops, no rubs Abdomen: Soft, nontender, no organomegaly, bowel sounds present, Neuro: No focalsuprapubic catheter in, slight discharge at the site of insertion deficits, no facial deformity, AO x3, power 5/5 in all limbs Extremities: Healthy surgical dressing present on the right hip, mild tenderness, soft no erythema. Urinary Catheter Management^: Suprapubic: Cath Placed During This Visit: yes Reason for Continuing Indwelling Catheter: Chronic Indwelling Urinary Catheter on Admission Urinary Catheter Date of Insertion: 04/14/21 Urinary Catheter Time of Insertion: 12:00 Data : 04/15/21 11:10 04/15/21 11:10 A&P Assessment and plan (1) Hematuria: oNoted to have brian hematuria in ER, SPC flushed after which there is clear urine in bag l Status: Acute (2) Urinary tract infection: =UA, urine cx pending start ceftriaxone emiprically acute on chronic cytsitis Status: Acute (3) Chronic indwelling Urena catheter: Status: Acute (4) Acute kidney injury superimposed on CKD: last known cr at 2.4, today at 3 today IVF NS @ 75cc/hr monitor I/o US renal to evalute hydronephrosis Status: Acute (5) Hyperkalemia: monitor with hydration check EKG Status: Acute Attestations Medical Necessity Statement*: antcipate >2MN admission for iv abx, iv hydration in view of VIV, monitor cr trend Coding Level of Care Code Acute [employer] for g Fwd Diagnoses Hematuria R31.9 Urinary tract infection N39.0 Chronic indwelling Urena catheter Z97.8 Acute kidney injury superimposed on CKD N17.9; N18.9 Hyperkalemia E87.5
--- NOTE | 2021-04-15 20:01 | ECG_ITS ---
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 Measurements Intervals [place] Rate: 81 P: 32 WI: 221 QRS: -11 QRSD: 87 T: 38 QT: 370 QTc: 431 Interpretive Statements SINUS RHYTHM WITH FIRST DEGREE AV BLOCK MINIMAL VOLTAGE CRITERIA FOR LVH, CONSIDER NORMAL VARIANT [MEETS CRITERIA IN ONE OF: R(aVL), S(V1), R(V5), R(V5/V6)+S(V1)] Compared to ECG 12/03/2019 17:38:57 First degree AV block now present Electronically Signed On 04-20-2021 18:43:07 CDT by Portia Lechuga M.D. [email or web address]
[2021-04-15] MEDS: cefTRIAXone 1,000 MG in sodium chloride 0.9% (plus) 50 ML 100 MG IV (20:24)
[2021-04-15] MEDS: enoxaparin 40 mg/0.4 mL Syringe SUBCUT (20:24)
[2021-04-15] MEDS: sodium chloride 0.9% 1,000 ML 75 ML IV (20:24)
[2021-04-15 20:42] LABS: Glucose Point of Care 248 mg/dL (70-110)
[2021-04-15] MEDS: methadone 10 mg Tablet 5 MG PO (21:37)
[2021-04-16] VITALS: BP 139/79; PULSE 79; RESP 20; TEMP 36.9; O2SAT 97
[2021-04-16 04:00] VITALS: BP 159/82; PULSE 79; RESP 20; TEMP 36.7; O2SAT 98
[2021-04-16] MEDS: FUROsemide 20 mg Tablet 10 MG PO (05:05)
[2021-04-16 05:49] LABS: Basophils % 0.6 %; Eosinophils # 0.2 10^3/uL (0.0-0.8); Eosinophils % 4.1 %; Hematocrit 26.5 % (42.0-52.0); Hemoglobin 8.5 g/dL (11.7-16.6); Lymphocytes # 1.4 10^3/uL (0.8-4.8); Lymphocytes % 26.2 %; Mean Corpuscular HGB Conc 32.1 g/dL (30.0-36.0); Mean Corpuscular Hemoglobin 33.1 pg (28.0-34.0); Mean Corpuscular Volume 103.1 fL (80-94); Mean Platelet Volume 10.8 fL (7.4-10.4); Monocytes # 0.4 10^3/uL (0.2-0.9); Monocytes % 8.2 %; Neutrophils # 3.13 10^3/uL (1.8-7.7); Neutrophils % 60.7 %; Nucleated Red Blood Cells % 0 %; Platelet Count 122 10^3/cmm (130-400); Red Blood Count 2.57 10^6/uL (4.1-5.3); Red Cell Distribution Width 15.5 % (12.1-15.1); White Blood Count 5.2 10^3/uL (4.0-10.0)
[2021-04-16 06:07] LABS: Alanine Aminotransferase 8 U/L (0-41); Albumin Level 3.5 g/dL (3.5-5.2); Alkaline Phosphatase 61 IU/L (40-130); Anion Gap 14.4 (5-19); Aspartate Amino Transferase 15 U/L (0-40); Blood Urea Nitrogen 55 mg/dL (8-23); Calcium 8.5 mg/dL (8.5-10.5); Carbon Dioxide 21 mmol/L (22-29); Chloride 109 mmol/L (98-107); Globulin 4.1 g/dL (1.3-4.6); Glomerular Filtration Rate 19.4 mL/min (90-130); Glucose 219 mg/dL (65-115); Osmolality Calculated 310 mOsm/kg (285-295); Potassium 5.4 mmol/L (3.5-5.1); Sodium 139 mmol/L (136-145); Total Bilirubin 0.3 mg/dL (0.15-1.2); Total Protein 7.6 g/dL (6.6-8.7)
[2021-04-16 06:25] LABS: Glucose Point of Care 245 mg/dL (70-110)
[2021-04-16 08:00] VITALS: BP 157/86; PULSE 75; RESP 18; TEMP 37.1; O2SAT 98
[2021-04-16] MEDS: carvedilol 25 mg Tablet PO ×2 (08:26→17:57)
[2021-04-16] MEDS: atorvastatin 40 mg Tablet 20 MG PO (08:26)
[2021-04-16] MEDS: cetirizine 10 mg Tablet PO (08:26)
[2021-04-16] MEDS: allopurinol 100 mg Tablet PO (08:26)
[2021-04-16] MEDS: pantoprazole DR 40 mg Tablet PO (08:26)
[2021-04-16] MEDS: sennosides 8.6 mg Tablet 17.2 MG PO ×2 (08:26→17:57)
[2021-04-16] MEDS: methadone 10 mg Tablet 5 MG PO ×4 (08:27→21:02)
[2021-04-16] MEDS: sodium chloride 0.9% 1,000 ML 75 ML IV ×2 (08:33→22:47)
[2021-04-16 11:40] VITALS: BP 151/74; PULSE 75; RESP 17; TEMP 37.2; O2SAT 98
[2021-04-16 12:18] LABS: Glucose Point of Care 251 mg/dL (70-110)
--- NOTE | 2021-04-16 12:35 | PC.CHAP ---
Pastoral Care Encounter/Spiritual Assessment Type of Contact [] Declined process steward visit [] Patient/Family/Request visit [] Outpatient visit [] Follow-up visit [] Physician referral [] Code/Alert [] Routine visit [] Staff referral [] Actively dying [] Patient sleeping [] Family support [] [] Out of room [] Palliative care [] [xx] Receiving care in room [] Pre-surgical visit [] Trauma [] Long length of stay [] ICU visit [] Other: Relational/Emotional Strength [] Patient feels connected with others/family/visitors/staff [] Distress [] Loneliness/isolation [] Abandonment Spirituality of Patient [] Person of Raina [] Attends Shinto of their Raina [] Believes in Prayer [] Reads Bible or Hinduism materials [] There are Spiritual issues to be addressed Mainspring Former Interventions [] Prayer [] Active listening [] Non-anxious presence [] Spiritual/emotional support [] Crisis/trauma care [] Spiritual counseling [] Bereavement support [] Provided bereavement packet [] Provided Bible/devotional materials [] Provided toy/stuffed animal, coloring book to patient or family member [] Provided Communion [] Anointing/[place] [] Salvation [] Completed spiritual assessment [] Other: Impact on Illness or Injury [] Angry [] Fearful [] Anxious [] Often cries [] Exhaustion [] Unable to work [] Unable to attend baptism [] Unable to walk/stand [] Unable to read [] Unable to drive [] Unable to eat/drink [] Unable to sleep [] Unable to be with family [] Patient intubated [] Other: Summary Follow up needed. Med staff busy with patient in bed 2 and no room or opportunity to visit this patient in bed 1 or other patient either. Time spent with patient
[2021-04-16 16:00] VITALS: BP 118/64; PULSE 72; RESP 17; TEMP 37.2; O2SAT 98
[2021-04-16 17:37] LABS: Glucose Point of Care 209 mg/dL (70-110)
--- NOTE | 2021-04-16 19:14 | PM.PN ---
Subjective Subjective: Interval history: Tmax 99.7F , K again at 5.4, cr slightly improved at 3.2, urine output 1L, urine cx with GNR Medications: Reviewed: Yes Vitals/I&O/Wt Last Vital Signs Temp 99.0 F 04/16/21 16:00 Pulse 72 04/16/21 16:00 Resp 17 04/16/21 16:00 BP 118/64 04/16/21 16:00 Pulse Ox 98 04/16/21 16:00 04/16/21 04/16/21 04/16/21 06:59 14:59 22:59 Intake Total 720 / 1890 1391.25 / 1391.25 240 / 1631.25 Output Total 1000 / 2150 Balance -280 / -260 1391.25 / 1391.25 240 / 1631.25 Weight last 48 hrs Weight 88.451 kg Physical Exam Narrative: EXAM NARRATIVE: GEN: Awake, alert and oriented, no acute distress CVS: S1S2 N RS: CTA B/L except crackles over RUL Abd: Soft, nt/nd , bs+ 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 Likely secondary to trauma from multiple attempts at placement of suprapubic catheter This is now resolved. Patient will follow up with his outpatient urologist Dr. Lechuga in [place]. Status: Acute (2) Urinary tract infection: =UA, urine culture with gram-negative rods pending identification Previous urine cultures reviewed pneumonia sick been detected in the past. Change ceftriaxone to cefepime which is renally dosed. acute on chronic cytsitis Status: Acute (3) Chronic indwelling Urena catheter: Status: Acute (4) Acute kidney injury superimposed on CKD: Creatinine improving at 3.2 IVF NS @ 75cc/hr monitor I/o US renal to evalute hydronephrosis Status: Acute (5) Hyperkalemia: monitor with hydration Status: Acute Attestations Medical Necessity Statement*: change iv anx from CTX to cefepime ,awaiting densification fo GNR on cx, monitor creatinine Coding Level of Care Code Acute Conveyor Belt Operator for Chg Fwd Diagnoses Hematuria R31.9 Urinary tract infection N39.0 Chronic indwelling Urena catheter Z97.8 Acute kidney injury superimposed on CKD N17.9; N18.9 Hyperkalemia E87.5
[2021-04-16 19:58] VITALS: BP 116/77; PULSE 70; RESP 18; TEMP 37; O2SAT 97
[2021-04-16 20:54] LABS: Glucose Point of Care 210 mg/dL (70-110)
[2021-04-16] MEDS: cefepime 1,000 MG in sodium chloride 0.9% (plus) 50 ML 100 MG IV (21:00)
[2021-04-16] MEDS: enoxaparin 30 mg/0.3 mL Syringe SUBCUT (21:01)
[2021-04-17 00:21] VITALS: BP 131/64; PULSE 71; RESP 16; TEMP 37.1; O2SAT 98
[2021-04-17 03:55] VITALS: BP 100/49; PULSE 67; RESP 18; TEMP 36.7; O2SAT 97
--- NOTE | 2021-04-17 04:50 | PC.NURSE ---
shift summary Patient had good night, family stayed at bedside until 2300, due to patient was anxious and irritated today. Reported to this nurse that patient had said he was going to leave AMA. Patient has had no issue during this shift and has had no complaints of pain.
[2021-04-17] MEDS: FUROsemide 20 mg Tablet 10 MG PO (05:25)
[2021-04-17 06:22] LABS: Glucose Point of Care 216 mg/dL (70-110)
[2021-04-17 07:40] VITALS: BP 132/75; PULSE 70; RESP 18; TEMP 36.9; O2SAT 97
[2021-04-17] MEDS: methadone 10 mg Tablet 5 MG PO ×2 (08:50→14:27)
[2021-04-17] MEDS: allopurinol 100 mg Tablet PO (08:50)
[2021-04-17] MEDS: pantoprazole DR 40 mg Tablet PO (08:51)
[2021-04-17] MEDS: sennosides 8.6 mg Tablet 17.2 MG PO (08:51)
[2021-04-17] MEDS: cyclobenzaprine 10 mg Tablet PO (08:51)
[2021-04-17] MEDS: cetirizine 10 mg Tablet PO (08:51)
[2021-04-17] MEDS: atorvastatin 40 mg Tablet 20 MG PO (08:52)
[2021-04-17] MEDS: carvedilol 25 mg Tablet PO (08:52)
[2021-04-17 11:12] LABS: Glucose Point of Care 235 mg/dL (70-110)
[2021-04-17] MEDS: sodium chloride 0.9% 1,000 ML 75 ML IV (11:33)
[2021-04-17 12:00] VITALS: BP 142/65; PULSE 76; RESP 18; TEMP 36.6; O2SAT 93
--- NOTE | 2021-04-17 12:00 | P.DS_ITS ---
Discharge Providers Date of Admission: 04/15/21 12:48 Date of Discharge: April 17, 2021 Attending Provider at Admission: Torie Gonzales MD Attending Provider at Discharge: Torie Gonzales MD Primary Care Provider: Brian Piña Diagnoses at Discharge Discharge Diagnosis (1) Hematuria: Status: Acute (2) Urinary tract infection: Status: Acute (3) Chronic indwelling Urena catheter: Status: Acute (4) Acute kidney injury superimposed on CKD: Status: Acute (5) Hyperkalemia: Status: Acute Reason for Visit Reason for Visit: BLOOD IN CATH Hospital Course Hospital Course Juan Antonio Das is a 70 year old male with past medical history chronic indwelling suprapubic catheter since at least 2011 that gets changed every 3 to 4 weeks by his home health nurse. He presented from homewith chief complaints of hematuria. His nurse came to change his catheter yesterday, insertion was difficult and attempted 2-3 times and ultimately catheter was downsized for insertion. when he woke up the next morning he noticed brian blood and presented to the emergency room. Here UA was positive. Urine culture showed Enterobacter cloacae. Fever resolvd as inpatient onec abx were changed from iv ceftriaxone to iv cefepime. He is being discharged with transition to oral ciprofloxacin. There is noted to be some slight discharge around his suprapubic catheter insertion site which improved. Creatinine is higher than baseline, up to 3.4 from baseline of 2.4, along with hyperkalemia, which may be related to transient urinary obstruction from hematuria. Us renal . He will follow up with his primary urologist Dr. 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 Urinary Catheter Management^: Suprapubic: Cath Placed During This Visit: yes Reason for Continuing Indwelling Catheter: Chronic Indwelling Urinary Catheter on Admission Urinary Catheter Date of Insertion: 04/14/21 Urinary Catheter Time of Insertion: 12:00 Discharge Data Data Completed and Pending: Pending at discharge Category Date Time Status Comprehensive Met abolic Panel Stat Lab 04/17/21 11:47 Ordered US renal BI* [id number] Routine Ultrasound 04/17/21 19:19 Taken Labs from last 24 hours 04/17/21 04/17/21 04/16/21 10:59 06:14 20:01 POC Glucose 235 H 216 H 210 H 04/16/21 04/16/21 16:21 11:45 POC Glucose 209 H 251 H Vitals: Last Vital Signs Temp 98.4 F 04/17/21 07:40 Pulse 70 04/17/21 07:40 Resp 18 04/17/21 07:40 BP 132/75 04/17/21 07:40 Pulse Ox 97 04/17/21 07:40 Discharge Plan Discharge Patient Disposition: Home Condition: Stable Prescriptions: New Cipro 500 mg tablet 500 mg PO BID Qty: 14 RF: 0 Continued carvedilol 25 mg tablet 25 mg PO BID 90 Days Qty: 180 RF: 3 clopidogrel 75 mg tablet 75 mg PO DAILY 30 Days Qty: 30 RF: 5 Lasix 20 mg tablet 10 mg PO QAM 180 Days Qty: 90 RF: 5 pravastatin 40 mg tablet 20 mg PO DAILY 30 Days Qty: 30 RF: 5 cyclobenzaprine 10 mg Tablet 10 mg PO TID PRN (Reason: Pain) RF: 0 cetirizine 10 mg Tablet 10 mg PO DAILY RF: 0 calcium carbonate [Calcium 500] 500 mg calcium (1,250 mg) Tablet 500 mg PO TID RF: 0 calcitriol 0.5 mcg Capsule See Rx Instructions .ROUTE .COMPLEX RF: 0 epoetin alisa 10,000 unit/mL Solution See Rx Instructions .ROUTE .COMPLEX RF: 0 bisacodyl 5 mg Tablet 10 mg PO BEDTIME PRN (Reason: Constipation) RF: 0 brimonidine-timolol 0.2-0.5 % Drops 1 drp ophthalmic (eye) BID RF: 0 cholecalciferol (vitamin D3) [Vitamin D3] 2,000 unit Tablet 2,000 unit PO DAILY RF: 0 sennosides [senna] 8.6 mg Tablet 17.2 mg PO BID RF: 0 allopurinol 100 mg Tablet 100 mg PO DAILY RF: 0 pentoxifylline 400 mg Tablet Extended Release 400 mg PO BID RF: 0 magnesium oxide [MagOx] 400 mg (241.3 mg magnesium) Tablet 400 mg PO BID RF: 0 insulin aspart U-100 [Novolog U-100 Insulin aspart] 100 unit/mL Solution 50 unit SUBCUT QID RF: 0 omeprazole 20 mg Capsule,Delayed Release(Dr/Ec) 20 mg PO DAILY RF: 0 aspirin 81 mg Tablet,Chewable 81 mg PO DAILY RF: 0 methadone 5 mg Tablet 5 mg PO QID RF: 0 Triple Antibiotic 3.5mg-400 unit- 5,000 unit/gram ointment 1 applic topical BID Qty: 30 RF: 0 Discharge Orders: Discharge Order (Routine); Ordered 04/17/21 Ordered By: Torie Gonzales Referrals: Brian Piña [Primary Care Provider] - (Please call Dr. Piña's office and schedule an appointment to see Dr. Piña within one week if possible.) Discharge Diet: Usual diet Discharge Activity: Resume usual activity Patient Instructions: Opioid Safety Activity Restrictions/Additional Instructions: Follow-up with your urologist next week Discharge Attestations Time Spent in Discharge Care*: greater than 30 min Quality Metrics Clinical Quality Measures During this hospital stay, did patient experience: None Coding Level of Care Code Acute Chg DC note Diagnoses Hematuria R31.9 Urinary tract infection N39.0 Chronic indwelling Urena catheter Z97.8 Acute kidney injury superimposed on CKD N17.9; N18.9 Hyperkalemia E87.5
[2021-04-17 12:31] LABS: Alanine Aminotransferase 8 U/L (0-41); Albumin Level 3.6 g/dL (3.5-5.2); Alkaline Phosphatase 63 IU/L (40-130); Anion Gap 13.1 (5-19); Aspartate Amino Transferase 16 U/L (0-40); Blood Urea Nitrogen 49 mg/dL (8-23); Calcium 8.4 mg/dL (8.5-10.5); Carbon Dioxide 24 mmol/L (22-29); Chloride 109 mmol/L (98-107); Globulin 4.5 g/dL (1.3-4.6); Glomerular Filtration Rate 22.6 mL/min (90-130); Glucose 158 mg/dL (65-115); Osmolality Calculated 308 mOsm/kg (285-295); Potassium 5.1 mmol/L (3.5-5.1); Sodium 141 mmol/L (136-145); Total Bilirubin 0.2 mg/dL (0.15-1.2); Total Protein 8.1 g/dL (6.6-8.7)
[2021-04-17 12:45] VITALS: BP 132/75; PULSE 70; RESP 18; TEMP 36.9; O2SAT 97
[2021-04-17 15:20] VITALS: BP 113/63; PULSE 74; RESP 18; TEMP 37.1; O2SAT 98
--- NOTE | 2021-04-17 19:19 | USR_ITS ---
PROCEDURE INFORMATION: Exam: US Retroperitoneal; Complete; Kidneys and Bladder Exam date and time: 04/17/2021 8:25 AM Age: 70 years old Clinical indication: Abdominal pain; Additional info: [place] for hydronephrosis TECHNIQUE: Imaging protocol: Real-time ultrasound of the retroperitoneum with image documentation. Complete exam focused on the kidneys and bladder. COMPARISON: US Renal Kidney Structu* [id number] 03/02/2018 7:32 PM FINDINGS: Limitations: There is a prominent amount of bowel gas Gallbladder: Multiple stones present in the gallbladder. Right kidney: The right kidney measures 9.2 cm in length. No masses are seen in the right kidney. There is no obvious calcification and there is no hydronephrosis. Left kidney: The left kidney measures 9.7 cm in length. There is a 9 mm benign cyst in the lower pole of the left kidney. There is no hydronephrosis or renal calcification. Aorta: The aorta is obscured by bowel gas. US/US renal BI* [id number] IMPRESSION: 1. No significant abnormalities are seen in the kidneys. No hydronephrosis. 2. Cholelithiasis.
== END 2021-04-17 16:45 | disposition home health service (06) | DRG 699 ==
LOC: ER 11:54 → MEDSURG 13:22
PROVIDERS: Admitting Provider Student in an Organized Health Care Education/Training Program; Emergency Provider Family Medicine; PCP Internal Medicine; Visit Provider Student in an Organized Health Care Education/Training Program
DX: T83.518A Infection and inflammatory reaction due to other urinary catheter, initial encounter (principal); N30.01 Acute cystitis with hematuria; N17.9 Acute kidney failure, unspecified; Y73.2 Prosthetic and other implants, materials and accessory gastroenterology and urology devices associated with adverse incidents; N30.21 Other chronic cystitis with hematuria; E87.5 Hyperkalemia; D64.9 Anemia, unspecified; Z89.512 Acquired absence of left leg below knee; Z89.511 Acquired absence of right leg below knee; E11.22 Type 2 diabetes mellitus with diabetic chronic kidney disease; I12.9 Hypertensive chronic kidney disease with stage 1 through stage 4 chronic kidney disease, or unspecified chronic kidney disease; N18.9 Chronic kidney disease, unspecified; F32.9 Major depressive disorder, single episode, unspecified; E11.51 Type 2 diabetes mellitus with diabetic peripheral angiopathy without gangrene; E78.5 Hyperlipidemia, unspecified; G47.30 Sleep apnea, unspecified; B96.89 Other specified bacterial agents as the cause of diseases classified elsewhere; Z79.02 Long term (current) use of antithrombotics/antiplatelets; Z79.4 Long term (current) use of insulin; Z79.82 Long term (current) use of aspirin
CPT/HCPCS: 36415; 36416; 76770; 80048; 80053; 81001; 82962; 85025; 87077; 87086; 87186; 93005; 96360; 96372; 99285; J0692; J0696; J1650; J1815; J7030

== ENCOUNTER → 2021-05-20 11:49 | Outpatient (BNVA) | payer OTHER, MEDICARE, SELFPAY | PROVIDERS: PCP Family Medicine; Visit Provider Internal Medicine Cardiovascular Disease | DX: R94.39 Abnormal result of other cardiovascular function study (principal); R06.02 Shortness of breath; I10 Essential (primary) hypertension; E78.5 Hyperlipidemia, unspecified; Z79.899 Other long term (current) drug therapy | CPT/HCPCS: 85025 ==

== ENCOUNTER 2021-06-02 08:00 | Outpatient (CLI) | payer OTHER, SELFPAY | END 2021-06-02 08:01 | disposition home or self-care (01) | LOC: LAB 07-12 13:08 | PROVIDERS: PCP Family Medicine; Referring Provider Family Medicine; Visit Provider Internal Medicine Cardiovascular Disease | DX: R94.39 Abnormal result of other cardiovascular function study (principal) | CPT/HCPCS: 80048; 85025; 85610; 86850; 86900; 87635 ==

== ENCOUNTER 2021-06-08 06:20 | Day surgery (SDC) | payer OTHER, MEDICARE, SELFPAY ==
[2021-06-08] VITALS (15 sets, daily range): BP systolic 99–181; BP diastolic 52–100; PULSE 71–89; RESP 14–27; TEMP 36.6–37.2; O2SAT 93–100
--- NOTE | 2021-06-08 06:20 | XACV_ITS ---
Ht: 180 cm Wt: 82 kg BSA: 2.03 m2 Gender: Male : 1950 Any Known Allergies: No known allergies Exam Priority: Routine Procedure(s): Procedure Description: Diagnostic procedure Procedure Description: PCI procedure Procedure Description: Left Heart Catheterization Procedure Description: Left ventriculography Procedure Description: Drug Eluting Coronary Stent Procedure Description: Coronary Angiography Diagnostic Cath Status: Elective Diagnostic Findings * The left main is a medium caliber vessel with no significant stenotic lesion. * The left anterior descending artery was found to be a medium caliber vessel which to wrap around the LV apex. Right after the first diagonal branch, there was a segmental area of around 40 percent. Mild diffuse intimal enteritis were noted in the mid and distal segment of the artery. * Left circumflex artery is a medium caliber dominant vessel. It gives off a high obtuse marginal branch. The obtuse marginal branch was found to have around 70 to 80 percent segmental narrowing proximally. No other significant stenotic lesions were noted. * The right coronary artery is a medium caliber dominant vessel which was found to have minimal intimal irregularities in the proximal to mid segment. The distal segment of the artery was found to have around 40 percent segmental narrowing. PCI Status: Urgent PCI Indication: NSTE - ACS Interventional Findings * First Obtuse Marginal Branch Segment: 90% stenosis treated with a MDT R ZURDO 2.5X15 VICKI. 0% residual stenosis, MO: 3 flow. * Successful PCI to mid * OM-1 * . Lesion was treated with direct * deployment of * ZURDO * INTEGRITY * 2.5 x 1 * 5 * mm stent posted at high MILY of 1 * 4 * mm to ensure proper approximation. Excellent angiographic result with MO-3 flow was achieved. . Conclusions 1. Normal left ventricular systolic function. Ejection fraction of 55%. 2. 71-year-old white male with history of hypertension, dyslipidemia and severe peripheral artery disease, presented with increasing episodes of chest pain. He had a myocardial perfusion imaging which revealed an area of reversible defect in the distribution of the left circumflex artery. In view of the ongoing worsening symptoms, in order to further evaluate his coronary status, a cardiac catheterization was recommended. Patient underwent left heart catheterization with left and right coronary angiogram and LV angiogram today. The findings are as follows. 3. Left main was found no significant disease. 4. P 5. roximal left interesting artery was found to have around 40 percent segmental narrowing. The first obtuse marginal artery was found to have around a 70 to 80 percent tubular narrowing proximally. The right coronary artery was found to have mild diffuse disease. LV ejection fraction was around 50 percent. LVEDP of 20 mmHg. 6. I reviewed and discussed the cardiac catheterization data with Dr. Dash. Based on the patient's clinical symptoms and the abnormal objective findings, in order to further manage his condition, a PCI of the circumflex artery was thought to be appropriate. Dr. Dash took over further management of this patient at this point. 7. First Obtuse Marginal Branch Segment was treated with a Drug Eluting Stent. Recommendations * 1-Return to inpatient for close monitoring and routine cath care 2-Risk factor modification for secondary prevention 3-Statin and aspirin 81 mg life--long, if tolerated 4-Continue Plavix 75mg p.o. daily for at least one year. We will assess at the end of one year again to continue if further or not 5-Continue optimal medical management 6-Follow up with Dr. Ramachandran in four weeks and your primary care in 10 days. Interventional RX Recommendation: PCI w/o planned CABG Diagnostic RX Recommendation: PCI w/o planned CABG Ventriculography Ejection Fraction: 55.0 % LV EDP: 20 mmHg Left Ventriculography Findings: * The LV gram was performed in the BENITEZ projection. The LV cavity appeared to be normal size. LV ejection fraction was around 50 percent. Pressures Phase:Rest AO : 204 / 46 ( 89 ) @ 6:42:00 AM 136 / 68 ( 98 ) @ 6:48:00 AM LV : 133 / -4 / 20 @ 6:47:00 AM 135 / -5 / 22 @ 6:48:00 AM 136 / -5 / 22 @ 6:48:00 AM Valves Phase:DefaultPhase AV : 0.0 @ 8:32:06 AM AV Mean Gradient: 0.0 @ 8:32:06 AM Clinical Evaluation EBL: 5mL-10mL Procedural Details Procedure Consent Obtained. Pre-Procedure Time Out. Identified patient by full name and date of as verbalized by the patient/guarantor. Does the consent match the physician's order: Yes. Accurate & Complete Informed Consent: Yes. Inpatient/Outpatient History & Physical on Chart: Yes. If H&P is completed, is and addenduem needed: N/A; If yes, is the addendum complete: N/A. Visualize and Verify Site with Patient/Guarantor: N/A. Relevant Radiology Images available: Yes. Pre-op teaching completed and patient verbalized understanding. The risks, benefits, and alternatives of sedation and/or procedure were discussed by physician. The patient agrees to continue. Procedure started. Correct patient, site and procedure confirmed by cath team. PERRLA. Strong, equal hand color mixer bilaterally. Lungs clear x 5 lobes. IV Site on Arrival: 20 gauge in the left anticubital. IV Fluids: 0.9% NaCl at KVO. 250 mL infused prior to slab inspector. Pre Procedural Pulses: bilateral radial was 3+. Oxygen started at 2liters/min via nasal canula. right groin was prepped with chloroprep then draped in the usual sterile fashion. right radial was prepped with chloroprep then draped in the usual sterile fashion. Physician notified. Baseline sample Acquired. HR: 86 BPM. Physician arrived. Equipment: 6F - Radial. Cardiac Cath Pack. ACIST Manifold Kit Model BT 2000. Heparinized Saline (2 units/mL), 1000 mL bag. Physician scrubbed in. Immediate Pre-Procedure Time Out. Correct Patient: Yes; Correct Procedure: Yes; Correct Site: Yes; Correct Patient Position: Yes; Correct Supplies: Yes; Dried Flammable Prep: Yes; Blood Products Available: No;. Lidocaine 1% infiltrated to the right radial. Arterial access obtained. Inventory is JJ Standard Exchange J-Tip Guidewire .035 260cm. A 5 palauan Juno catheter in over wire. [facility] Clinical Fraility Score: 5: Mildly Frail. Etl Software Engineer Indications: Worsening Angina. Chest Pain Symptom Assessment: Atypical Angina. Cardiovascular Instability: No. Multiple views taken of right coronary artery. Catheter out. A 5 palauan TIG catheter in over wire. Multiple views taken of left coronary artery. Catheter out. A 5 palauan Angled Pig catheter in over wire. EDP Sample taken: LV 133/-5,20; HR: 79 BPM; SpO2: 99%. LV gram performed in BENITEZ @ 10 mL/second for a total of 30 mL. EDP Sample taken: LV 135/-6,22; HR: 78 BPM; SpO2: 100%. Pullback taken: LV 136/-6,22; AO 136/68(98); Mean: 0mmHg, Peak to Peak: 0mmHg, SEP: 7sec/min; HR: 78 BPM; SpO2: 99%. Catheter out. Dr. Ramachandran scrubbed out to review films. Side port of sheath attached to Normal Saline flush at KVO to maintain patency. Dr. Dash called. Patient's family updated by Dr. Ramachandran. Post-op diagnosis: high degree block in obtuse margin, mild to moderate difuse disease. Dr. Dash arrived. Dr. Dash scrubbed in to perform intervention. Inventory is Monitronic Nageezi XT .014 190cm Str. Guidewire. 6 palauan XB 3 guide catheter was inserted over the wire. Nageezi guidewire was advanced through the guide catheter to lesion in the OM. Inflation Number : 1 Micah JOHNSON R ZURDO 2.5X15 VICKI -Lot Number# [id number] exp 03-04-2023 was prepped and advanced across the 1st Ob [place]. The stent was deployed at 14 MILY for 0:25 seconds. Results checked. Stent balloon and wire out. Guide catheter out. TR band placed. Hemostasis obtained. A TR Band was successful obtaining hemostatsis at the Right Radial artery insertion site. Post Procedure: Pulses reassessed and unchanged. A 16Fr diaz catheter was inserted without resistance maintaining sterile technique. Bag to gravity with clear urine returning. PERRLA. Strong, equal hand color mixer bilaterally. No VTE prophylaxis required. Total IV fluids: 116 mL. Fluoro: 11:07. Contrast type used: Omnipaque 300 mgI/mL, 500 mL bottle. [id number]. PCI Indication: New Onset Angina/ abnormal stress test. Complications: none. Estimated blood loss: 5mL-10mL. Procedure completed. Patient transferred by bed to CPRU. Vital chart was stopped. Access Site Site: Right Radial artery Sheath Size: 6 Fr Hemostasis Method: TR Band Hemostasis Success: Successful Procedure Medications Start: 7:19 AM Stop: 7:19 AM Medication: Versed Amount: 1 mg Route: I.V. Start: 7:19 AM Stop: 7:19 AM Medication: Fentanyl Amount: 50 mcg Route: I.V. Start: 7:23 AM Stop: 7:23 AM Medication: Versed Amount: 1 mg Route: I.V. Start: 7:23 AM Stop: 7:23 AM Medication: Fentanyl Amount: 50 mcg Route: I.V. Start: 7:31 AM Stop: 7:31 AM Medication: Nitrogylcerin Amount: 200 mcg Route: I.A. Start: 7:31 AM Stop: 7:31 AM Medication: Verapamil Amount: 5 mg Route: I.A. Start: 7:31 AM Stop: 7:31 AM Medication: Versed Amount: 1 mg Route: I.V. Start: 7:31 AM Stop: 7:31 AM Medication: Fentanyl Amount: 50 mcg Route: I.V. Start: 7:36 AM Stop: 7:36 AM Medication: Heparin Amount: 5000 units Route: I.V. Start: 8:25 AM Stop: 8:25 AM Medication: Heparin Amount: 4000 units Route: I.V. I, the attending physician, have reviewed and verified all procedure medications. Yes, all medications given per verbal order History/Risk Factors Hypertension: Yes Dyslipidemia: Yes Tobacco Use: Former Report Signatures Interventional Workflow Finalized by Miguelina Dash MD on 06/20/2021 04:12 PM Diagnostic Workflow Finalized by Dr Steve Ramachandran MD [facility] on 06/08/2021 11:55 PM
[2021-06-08] MEDS: sodium chloride 0.9% 250 ML 999 ML IV (06:30)
[2021-06-08 07:06] LABS: Anion Gap 15.9 (5-19); Blood Urea Nitrogen 43 mg/dL (8-23); Carbon Dioxide 23 mmol/L (22-29); Chloride 101 mmol/L (98-107); Glomerular Filtration Rate 29.7 mL/min (90-130); Glucose 215 mg/dL (65-115); Osmolality Calculated 297 mOsm/kg (285-295); Potassium 4.9 mmol/L (3.5-5.1); Sodium 135 mmol/L (136-145)
--- NOTE | 2021-06-08 07:14 | W.PM.OPSUD ---
Surgery/Procedure H&P Update DATE OF PROCEDURE: June 08, 2021 DATE H&P PERFORMED: 05/18/21 H&P UPDATE INFORMATION: I have reviewed H&P completed within last 30 days, I have examined patient prior to procedure and No changes to prior documentation PREOP DIAGNOSIS: ASHD/abnormal myocardial perfusion imaging PRIMARY INDICATION FOR PROCEDURE: Increasing episodes of chest pain PLANNED PROCEDURE: Operation Date: 06/08/21 07:00 Proposed Procedures p left Cardiac Catheterization 92207 r94.39(Left) - Steve Ramachandran MD PATIENT REASSESSED PRIOR TO SEDATION, WITH NO CHANGE NOTED: Yes PHYSICAL EXAM: alert, oriented x 3, clear to auscultation bilaterally, regular rate & rhythm and operative site marked AIRWAY EVAL/ANESTHESIA PLAN: normal airway, see other exam findings, ASA IV, Monitored Anesthesia, Local Anesthesia, Risks, benefits & alternatives of sedation and/or procedure discussed and Patient agrees to continue as planned ADDITIONAL INFORMATION: CKD
--- NOTE | 2021-06-08 08:45 | PC.NURSE ---
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 pt alert and oriented x3. tr band in place on right wrist with distal pulse palpable. pt placed on vitals machine and will be monitored per protocol. pt educated on restrictions of right wrist and acknoledged understanding. nurse to continue to educate per stay.
[2021-06-08] MEDS: clopidogrel 75 mg Tablet PO (09:15)
[2021-06-08 12:47] LABS: Glucose Point of Care 266 mg/dL (70-110)
[2021-06-08] MEDS: methadone 10 mg Tablet 5 MG PO ×2 (15:02→20:20)
[2021-06-08] MEDS: calcium carbonate 500 mg Chew Tablet PO ×2 (15:02→20:20)
[2021-06-08 15:04] LABS: Glucose Point of Care 212 mg/dL (70-110)
[2021-06-08] MEDS: calcitriol 0.25 mcg Capsule 0.5 MCG PO (15:15)
[2021-06-08 16:35] LABS: Glucose Point of Care 88 mg/dL (70-110)
[2021-06-08] MEDS: magnesium oxide 400 mg tablet PO (17:54)
[2021-06-08] MEDS: carvedilol 25 mg Tablet PO (17:54)
[2021-06-08] MEDS: sodium chloride 0.9% 1,000 ML 50 ML IV (17:55)
--- NOTE | 2021-06-08 17:58 | PC.NURSE ---
Insulin 50 units was not given for 1800. Blood sugar level was 88 at 1624.
[2021-06-08] MEDS: sodium chloride 0.9% 1,000 ML 75 ML IV (20:18)
[2021-06-08 20:22] LABS: Glucose Point of Care 159 mg/dL (70-110)
[2021-06-08 21:31] LABS: Glucose Point of Care 138 mg/dL (70-110)
[2021-06-09 02:32] LABS: Glucose Point of Care 74 mg/dL (70-110)
[2021-06-09 03:37] VITALS: BP 147/80; PULSE 63; RESP 10; TEMP 36.6; O2SAT 91
[2021-06-09 04:46] VITALS: PULSE 61
[2021-06-09 05:30] LABS: Basophils % 0.3 %; Eosinophils # 0.1 10^3/uL (0.0-0.8); Eosinophils % 1.9 %; Hematocrit 26.3 % (42.0-52.0); Hemoglobin 8.7 g/dL (11.7-16.6); Lymphocytes # 0.9 10^3/uL (0.8-4.8); Mean Corpuscular HGB Conc 33.1 g/dL (30.0-36.0); Mean Corpuscular Hemoglobin 33.1 pg (28.0-34.0); Mean Platelet Volume 10.3 fL (7.4-10.4); Monocytes # 0.3 10^3/uL (0.2-0.9); Monocytes % 5.1 %; Neutrophils # 4.83 10^3/uL (1.8-7.7); Neutrophils % 77.4 %; Nucleated Red Blood Cells % 0 %; Platelet Count 146 10^3/cmm (130-400); Red Blood Count 2.63 10^6/uL (4.1-5.3); Red Cell Distribution Width 14.2 % (12.1-15.1); White Blood Count 6.3 10^3/uL (4.0-10.0)
[2021-06-09 05:45] LABS: Anion Gap 12.8 (5-19); Blood Urea Nitrogen 45 mg/dL (8-23); Calcium 8.4 mg/dL (8.5-10.5); Carbon Dioxide 22 mmol/L (22-29); Chloride 105 mmol/L (98-107); Glomerular Filtration Rate 25.7 mL/min (90-130); Glucose 85 mg/dL (65-115); Osmolality Calculated 291 mOsm/kg (285-295); Potassium 4.8 mmol/L (3.5-5.1); Sodium 135 mmol/L (136-145)
[2021-06-09 05:50] LABS: Partial Thromboplastin Time 31.4 SECONDS (23.9-36.7)
[2021-06-09] MEDS: sodium chloride 0.9% 1,000 ML 75 ML IV (06:06)
[2021-06-09 06:52] LABS: Glucose Point of Care 150 mg/dL (70-110)
[2021-06-09] MEDS: clopidogrel 75 mg Tablet PO (08:35)
[2021-06-09] MEDS: allopurinol 100 mg Tablet PO (08:35)
[2021-06-09] MEDS: cholecalciferol (vitamin D3) 1,000 unit Tablet 2000 UNIT PO (08:35)
[2021-06-09] MEDS: calcium carbonate 500 mg Chew Tablet PO (08:35)
[2021-06-09] MEDS: pantoprazole DR 40 mg Tablet PO (08:36)
[2021-06-09] MEDS: aspirin 81 mg Chew Tablet PO (08:36)
[2021-06-09] MEDS: carvedilol 25 mg Tablet PO (08:36)
[2021-06-09] MEDS: sennosides 8.6 mg Tablet 17.2 MG PO (08:36)
[2021-06-09] MEDS: methadone 10 mg Tablet 5 MG PO (08:36)
[2021-06-09] MEDS: cetirizine 10 mg Tablet PO (08:36)
[2021-06-09] MEDS: magnesium oxide 400 mg tablet PO (08:36)
--- NOTE | 2021-06-09 09:14 | PC.CHAP ---
Pastoral Care Encounter/Spiritual Assessment Type of Contact [] Declined footwear production machine operator visit [] Patient/Family/Request visit [] Outpatient visit [] Follow-up visit [] Physician referral [] Code/Alert [x] Routine visit [] Staff referral [] Actively dying [] Patient sleeping [] Family support [] [] Out of room [] Palliative care [] [] Receiving care in room [] Pre-surgical visit [] Trauma [] Long length of stay [] ICU visit [] Other: Relational/Emotional Strength [] Patient feels connected with others/family/visitors/staff [] Distress [] Loneliness/isolation [] Abandonment Spirituality of Patient [] Person of Raina [] Attends Restorationism of their Raina [] Believes in Prayer [] Reads Bible or Shinto materials [] There are Spiritual issues to be addressed History Tutor Interventions [x] Prayer [x] Active listening [x] Non-anxious presence [x] Spiritual/emotional support [] Crisis/trauma care [] Spiritual counseling [] Bereavement support [] Provided bereavement packet [] Provided Bible/devotional materials [] Provided toy/stuffed animal, coloring book to patient or family member [] Provided Communion [] Anointing/[place] [] Salvation [x] Completed spiritual assessment [] Other: Impact on Illness or Injury [] Angry [] Fearful [] Anxious [] Often cries [] Exhaustion [] Unable to work [] Unable to attend yazdanism [] Unable to walk/stand [] Unable to read [] Unable to drive [] Unable to eat/drink [] Unable to sleep [] Unable to be with family [] Patient intubated [] Other: Summary many physical issues.. amputations .. blind eye etc... trying to hold on to raina.. has struggled in the past with life.. 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
--- NOTE | 2021-06-09 10:00 | PM.DCS ---
Discharge Providers Date of Discharge: June 09, 2021 Attending Provider at Discharge: Steve Ramachandran MD Primary Care Provider: Kellie Sotelo MD Diagnoses at Discharge Discharge Diagnosis (1) Type 2 diabetes mellitus treated with insulin: Status: Acute Permanent problem details: Diabetes under control. (2) Peripheral arterial disease: Status: Acute Permanent problem details: Patient had bilateral below-knee amputations. Currently has no specific symptoms. (3) Atherosclerotic heart disease of [place] coronary artery with other forms of angina pectoris: Status: Acute Permanent problem details: Underwent a PCI of the obtuse marginal artery. (4) Benign essential HTN: Status: Acute Permanent problem details: for 30 yrs (5) Dyslipidemia: Status: Acute Permanent problem details: Currently on rosuvastatin. Reason for Visit Reason for Visit: [facility] Hospital Course Hospital Course This patient was admitted to hospital following cardiac colorization. He is known to have chronic disease with a creatinine around 3.0. Patient was hydrated prior to the procedure. Admit to the hospital mainly for IV hydration and close monitoring. Catheterization revealed a high-grade lesion in the first obtuse marginal artery. He underwent a primary stenting of this lesion by Dr. Dash. Postoperatively, the patient remained stable with no chest pain or any specific cardiac symptoms. He was given IV hydration. The repeat a BMP this morning showed the creatinine to be 2.5. His hemoglobin was staying around 9. This morning it was found to be 8.7. Patient is currently stable with no specific symptoms. His vital signs are stable. Since he is remained stable with no new symptoms, he is being discharged home . Physical Exam Narrative: EXAM NARRATIVE: GENERAL: The patient is alert and oriented times three. Not in any acute distress. HEENT: Minimal pallor. No icterus or lymphadenopathy.Oral cavity: There are no mucous membrane lesions. NECK: Trachea appears to be central. No masses noted. No JVD or thyromegaly appreciated. RESPIRATORY: Chest is symmetrical. No intercostals muscle retraction or any accessory muscle activation. There is no chest wall tenderness. Breath sounds are heard bilaterally. No rales or rhonchi heard. No evidence of any consolidation. BREASTS: Deferred. HEART: The heart sounds are normal. No S3 or S4. No significant murmurs. No pericardial rub ABDOMEN: No vessel pulsations or distention. No tenderness. No organomegaly appreciated. Bowel sounds are normally heard. : Deferred. RECTAL: Deferred. LYMPHATIC: No lymphadenopathy noted in the neck or groin. EXTREMITIES: Bilateral below-knee amputation. MUSCULOSKELETAL: No acute joint deformities or swelling SKIN: There are no significant rashes or ecchymosis NEUROPSYCHIATRIC: No focal motor deficits. Discharge Data Data Completed and Pending: Pending at discharge Category Date Time Status [employer] AIDE request for service Routin e Exams 06/08/21 06:20 Taken a cardiac catheterization revealed around 70 to 80% lesion in the first obtuse marginal artery. Mild diffuse disease in the other vessels. Further details, please refer to the cardiac catheterization report from 06/08/2021 Labs from last 24 hours 06/09/21 06/09/21 06/09/21 06:49 04:30 04:30 WBC RBC Hgb Hct MCV MCH MCHC RDW Plt Count MPV Neut % (Auto) Lymph % (Auto) Bennett % (Auto) Eos % (Auto) Baso % (Auto) Neut # (Auto) Lymph # (Auto) Bennett # (Auto) Eos # (Auto) Baso # (Auto) Nucleated RBC % (a uto) Nucleated RBCs # APTT 31.4 Sodium 135 L Potassium 4.8 Chloride 105 Carbon Dioxide 22 Anion Gap 12.8 BUN 45 H Creatinine 2.5 H GFR Calculation 25.7 L Glucose 85 POC Glucose 150 H Calculated Osmolal ity 291 Calcium 8.4 L 06/09/21 06/09/21 06/08/21 04:30 02:27 21:28 WBC 6.3 RBC 2.63 L Hgb 8.7 L Hct 26.3 L MCV 100.0 H MCH 33.1 MCHC 33.1 RDW 14.2 Plt Count 146 MPV 10.3 Neut % (Auto) 77.4 Lymph % (Auto) 15.0 Bennett % (Auto) 5.1 Eos % (Auto) 1.9 Baso % (Auto) 0.3 Neut # (Auto) 4.83 Lymph # (Auto) 0.9 Bennett # (Auto) 0.3 Eos # (Auto) 0.1 Baso # (Auto) 0.0 Nucleated RBC % (a uto) 0 Nucleated RBCs # 0.0 APTT Sodium Potassium Chloride Carbon Dioxide Anion Gap BUN Creatinine GFR Calculation Glucose POC Glucose 74 138 H Calculated Osmolal ity Calcium 06/08/21 06/08/21 06/08/21 20:06 16:24 15:00 WBC RBC Hgb Hct MCV MCH MCHC RDW Plt Count MPV Neut % (Auto) Lymph % (Auto) Bennett % (Auto) Eos % (Auto) Baso % (Auto) Neut # (Auto) Lymph # (Auto) Bennett # (Auto) Eos # (Auto) Baso # (Auto) Nucleated RBC % (a uto) Nucleated RBCs # APTT Sodium Potassium Chloride Carbon Dioxide Anion Gap BUN Creatinine GFR Calculation Glucose POC Glucose 159 H 88 212 H Calculated Osmolal ity Calcium 06/08/21 12:44 WBC RBC Hgb Hct MCV MCH MCHC RDW Plt Count MPV Neut % (Auto) Lymph % (Auto) Bennett % (Auto) Eos % (Auto) Baso % (Auto) Neut # (Auto) Lymph # (Auto) Bennett # (Auto) Eos # (Auto) Baso # (Auto) Nucleated RBC % (a uto) Nucleated RBCs # APTT Sodium Potassium Chloride Carbon Dioxide Anion Gap BUN Creatinine GFR Calculation Glucose POC Glucose 266 H Calculated Osmolal ity Calcium Vitals: Last Vital Signs Temp 98 F 06/09/21 03:37 Pulse 61 06/09/21 04:46 Resp 10 L 06/09/21 03:37 BP 147/80 06/09/21 03:37 Pulse Ox 91 06/09/21 03:37 Discharge Plan Discharge Patient Disposition: Home Condition: Stable Prescriptions: Continued carvedilol 25 mg tablet 25 mg PO BID 90 Days Qty: 180 RF: 3 clopidogrel 75 mg tablet 75 mg PO DAILY 30 Days Qty: 30 RF: 5 Lasix 20 mg tablet 10 mg PO QAM 180 Days Qty: 90 RF: 5 rosuvastatin 20 mg tablet 20 mg PO DAILY RF: 0 amlodipine 5 mg tablet 5 mg PO DAILY Qty: 30 RF: 5 nitroglycerin 0.4 mg tablet, sublingual 0.4 mg sublingual Q5M PRN (Reason: chest pain) 30 Days Qty: 30 RF: 3 cyclobenzaprine 10 mg Tablet 10 mg PO TID PRN (Reason: Pain) RF: 0 cetirizine 10 mg Tablet 10 mg PO DAILY RF: 0 calcium carbonate [Calcium 500] 500 mg calcium (1,250 mg) Tablet 500 mg PO TID RF: 0 calcitriol 0.5 mcg Capsule See Rx Instructions .ROUTE .COMPLEX RF: 0 epoetin alisa 10,000 unit/mL Solution See Rx Instructions .ROUTE .COMPLEX RF: 0 bisacodyl 5 mg Tablet 10 mg PO BEDTIME PRN (Reason: Constipation) RF: 0 brimonidine-timolol 0.2-0.5 % Drops 1 drp ophthalmic (eye) BID RF: 0 cholecalciferol (vitamin D3) [Vitamin D3] 2,000 unit Tablet 2,000 unit PO DAILY RF: 0 sennosides [senna] 8.6 mg Tablet 17.2 mg PO BID RF: 0 allopurinol 100 mg Tablet 100 mg PO DAILY RF: 0 pentoxifylline 400 mg Tablet Extended Release 400 mg PO BID RF: 0 magnesium oxide [MagOx] 400 mg (241.3 mg magnesium) Tablet 400 mg PO BID RF: 0 insulin aspart U-100 [Novolog U-100 Insulin aspart] 100 unit/mL Solution 50 unit SUBCUT QID RF: 0 omeprazole 20 mg Capsule,Delayed Release(Dr/Ec) 20 mg PO DAILY RF: 0 aspirin 81 mg Tablet,Chewable 81 mg PO DAILY RF: 0 methadone 5 mg Tablet 5 mg PO QID RF: 0 Triple Antibiotic 3.5mg-400 unit- 5,000 unit/gram ointment 1 applic topical BID Qty: 30 RF: 0 Discharge Orders: Discharge Order (Routine); Ordered 06/09/21 Ordered By: Steve Ramachandran Referrals: Mojgan Henning FNP [Nurse Practitioner] - Discharge Diet: Advance as tolerated Discharge Activity: Resume usual activity Patient Instructions: Left Heart Catheterization (DC), Coronary Angioplasty (DC), Post Angiogram Home Care Instructions Activity Restrictions/Additional Instructions: Avoid any weight lifting with the right hand for the next 3 days. Please make an appointment to be seen by the nurse practitioner at the [facility] next week Please give the post PCI instructions Discharge Attestations Time Spent in Discharge Care*: greater than 30 min Quality Metrics Clinical Quality Measures During this hospital stay, did patient experience: None Coding Level of Care Code Acute g DC note Diagnoses Type 2 diabetes mellitus treated with insulin E11.9; Z79.4 Peripheral arterial disease I73.9 Atherosclerotic heart disease of [place] coronary artery with other forms of angina pectoris I25.118 Benign essential HTN I10 Dyslipidemia E78.5
[2021-06-09 10:32] LABS: Glucose Point of Care 231 mg/dL (70-110)
[2021-06-09 10:42] VITALS: BP 135/79; PULSE 61; RESP 18
[2021-06-09 10:55] VITALS: PULSE 78; O2SAT 98
== END 2021-06-09 13:59 | disposition home or self-care (01) ==
LOC: CCL 06:32 → CSU 06-09 08:16
PROVIDERS: Internal Medicine Cardiovascular Disease; PCP Family Medicine; Visit Provider Internal Medicine Cardiovascular Disease
DX: I25.118 Atherosclerotic heart disease of native coronary artery with other forms of angina pectoris (principal); R94.39 Abnormal result of other cardiovascular function study; I10 Essential (primary) hypertension; E78.5 Hyperlipidemia, unspecified; I73.9 Peripheral vascular disease, unspecified; Z79.82 Long term (current) use of aspirin; E11.9 Type 2 diabetes mellitus without complications; Z79.4 Long term (current) use of insulin
CPT/HCPCS: 36415; 36416; 80048; 82962; 85025; 85730; 93452; 96372; C1769; C1874; C1887; C1894; C9600; J1644; J1815; J2250; J3010; J3490; J7030; Q9967

== ENCOUNTER → 2021-06-21 11:50 | Outpatient (BNVA) | payer OTHER, SELFPAY | PROVIDERS: PCP Family Medicine; Visit Provider Nurse Practitioner Family | DX: Z09 Encounter for follow-up examination after completed treatment for conditions other than malignant neoplasm (principal); I25.118 Atherosclerotic heart disease of native coronary artery with other forms of angina pectoris; I10 Essential (primary) hypertension | CPT/HCPCS: 80048 ==

== ENCOUNTER 2021-07-13 18:53 | Outpatient (CLI) | payer OTHER, SELFPAY ==
[2021-07-13 20:02] LABS: Urine Appearance Cloudy (CLEAR); Urine Color Yellow (Yellow); pH Urine 5 (5-7)
[2021-07-13 20:03] LABS: Add Urine Culture? Yes; Add Urine Microscopic? YES; Amorphous Sediment Urine 4+ /hpf; Bacteria Urine 1+ /hpf; Bilirubin Urine Neg (Negative); Blood Urine 3+ (Negative); Glucose Urine UA 4+ (Normal); Ketones Urine Negative (Negative); Leukocyte Esterase Urine 2+ (Negative); Nitrate Urine Negative (Negative); Protein Urine 2+ (Negative); RBC Urine 0-4 /hpf (0-2); Squamous Epithelial Cell Urine 0-4 /hpf (0-5); Urobilinogen Urine Norm (Negative); WBC Urine >100 /hpf (0-5)
== END 2021-07-13 18:54 | disposition home or self-care (01) ==
LOC: LAB 18:58
PROVIDERS: PCP Family Medicine; Visit Provider Family Medicine
DX: N39.0 Urinary tract infection, site not specified (principal)
CPT/HCPCS: 81001; 87077; 87086; 87186

== ENCOUNTER → 2021-08-17 10:12 | Outpatient (BNVA) | payer OTHER, SELFPAY | PROVIDERS: PCP Family Medicine; Visit Provider Internal Medicine Rheumatology | DX: E11.618 Type 2 diabetes mellitus with other diabetic arthropathy (principal); E11.40 Type 2 diabetes mellitus with diabetic neuropathy, unspecified; Z79.4 Long term (current) use of insulin; Z79.899 Other long term (current) drug therapy; Z11.59 Encounter for screening for other viral diseases; Z11.1 Encounter for screening for respiratory tuberculosis; M34.89 Other systemic sclerosis; Z89.519 Acquired absence of unspecified leg below knee; H54.40 Blindness, one eye, unspecified eye | CPT/HCPCS: 99204 ==

== ENCOUNTER → 2021-08-25 17:23 | Outpatient (BNVA) | payer OTHER, SELFPAY | PROVIDERS: PCP Family Medicine; Visit Provider Urology | DX: R31.0 Gross hematuria (principal) | CPT/HCPCS: 88112 ==

== ENCOUNTER 2021-09-02 13:42 | Outpatient (CLI) | payer OTHER, SELFPAY ==
[2021-09-02 15:00] LABS: Hepatitis B Core AB, Total Non-Reactive (Nonreactive); Hepatitis B Surface Antigen Non-Reactive (Nonreactive); Hepatitis C Virus Antibody Non-Reactive (Nonreactive)
[2021-09-03 14:58] LABS: COMPLEMENT COMPONENT C3C 117 mg/dL (82-185); COMPLEMENT COMPONENT C4C 30 mg/dL (15-53)
[2021-09-03 15:08] LABS: THYROID PEROXIDASE ANTIBODIES 4 IU/mL (<9)
[2021-09-03 15:32] LABS: COMPLEMENT, TOTAL (CH50) >60 U/mL (31-60)
[2021-09-03 16:28] LABS: Cyclic Citrullinated Peptide <16 UNITS
[2021-09-06 13:03] LABS: ANA SCREEN, IFA NEGATIVE (NEGATIVE)
[2021-09-06 13:38] LABS: Quantiferon Mitogen 9.58 IU/mL; Quantiferon Nil 0.03 IU/mL; Quantiferon Plus TB1 0.04 IU/mL; Quantiferon Plus TB2 0.04 IU/mL; Quantiferon TB Gold NEGATIVE (NEGATIVE)
[2021-09-06 13:47] LABS: CENTROMERE B ANTIBODY <1.0 NEG AI (<1.0 NEG); JO-1 ANTIBODY <1.0 NEG AI (<1.0 NEG); RNP ANTIBODY <1.0 NEG AI (<1.0 NEG); SCL-70 ANTIBODY <1.0 NEG AI (<1.0 NEG); SJOGREN'S ANTIBODY (SS-A) <1.0 NEG AI (<1.0 NEG); SM ANTIBODY <1.0 NEG AI (<1.0 NEG); SS-B <1.0 NEG AI (<1.0 NEG)
[2021-09-07 14:28] LABS: DNA AB (DS) CRITHIDIA,IFA NEGATIVE (NEGATIVE)
== END 2021-09-02 13:43 | disposition home or self-care (01) ==
PROVIDERS: PCP Family Medicine; Visit Provider Internal Medicine Rheumatology
DX: M25.50 Pain in unspecified joint (principal); R76.8 Other specified abnormal immunological findings in serum; Z79.899 Other long term (current) drug therapy; Z11.59 Encounter for screening for other viral diseases; Z11.1 Encounter for screening for respiratory tuberculosis
CPT/HCPCS: 36415; 86160; 86162; 86200; 86235; 86255; 86376; 86431; 86480; 86704; 86803; 87340

== ENCOUNTER → 2021-09-20 11:13 | Outpatient (BNVA) | payer OTHER, SELFPAY | PROVIDERS: PCP Family Medicine; Referring Provider Family Medicine; Visit Provider Internal Medicine | DX: E11.40 Type 2 diabetes mellitus with diabetic neuropathy, unspecified (principal); E11.618 Type 2 diabetes mellitus with other diabetic arthropathy; N18.4 Chronic kidney disease, stage 4 (severe); Z79.4 Long term (current) use of insulin; Z89.519 Acquired absence of unspecified leg below knee; I25.118 Atherosclerotic heart disease of native coronary artery with other forms of angina pectoris; Z89.512 Acquired absence of left leg below knee; Z89.511 Acquired absence of right leg below knee | CPT/HCPCS: 99204 ==

== ENCOUNTER 2021-09-22 12:37 | Outpatient (CLI) | payer OTHER, SELFPAY ==
--- NOTE | 2021-09-22 13:00 | CT_ITS ---
WS: [id number] CT ABDOMEN AND PELVIS NONCONTRAST HISTORY: GROSS HEMATURIA TECHNIQUE: Imaging performed through the abdomen and pelvis. Coronal and sagittal reformats are submi tted. All CT scans at [facility] use at least one of these dose optimization techniques: auto mated exposure control; mA and/or kV adjustment per patient size (includes targeted exams where dose is matched to clinical indication); or iterative reconstruction. DLP: 1511.01 mGy.cm COMPARISON: None available. Lower thorax: Lung bases are clear. Mild cardiomegaly. Small hiatal hernia. Liver: Normal size liver. No mass or bile duct dilatation. Gallbladder: Increased density within the gallbladder cholelithiasis and possible sludge. No adjacent inflammation. No bile duct dilatation. Pancreas: Atrophied pancreatic head. No mass identified. Spleen: Normal. Adrenal glands: Normal. No mass. Right kidney: Mild atrophy and perinephric stranding. Nonobstructing 2 mm calcification in the lower pole. No ureteral calcification. Left kidney: Mild cortical atrophy with moderate perinephric stranding. No hydronephrosis. Ureter is not dilated. Aorta: Mild atherosclerosis abdominal aorta with no aneurysm. No free fluid, intraperitoneal air or significant lymphadenopathy. GI tract: Normal appendix. There is marked distention of the stomach with fluid and food products. Hi gh density material in the stomach may be from the distal tablets. There is diffuse mild constipation throughout the colon. Additional medicinal tablet in the sigmoid region. Abdominal wall: Small umbilical hernia contains fat only. Pelvis: Suprapubic catheter present in a nondistended urinary bladder. Urinary bladder is not distend ed and the wall cannot be well visualized or evaluated. Osseous structures: Degenerative disc disease throughout the lumbar spine. No destructive bone lesion s. CT/CT abdomen pelvis wo con [id number] IMPRESSION: 1. No renal obstruction or soft tissue mass is identified on this unenhanced s tudy. 2. Bilateral perinephric stranding, greatest on the LEFT. Correlate for possib le pyelonephritis. 3. Nonobstructing 2 mm calcification lower pole RIGHT kidney. 4. Suprapubic catheter remains in good position within a nondistended urinary bladder. 5. Small hiatal hernia. 6. Cholelithiasis and possible gallbladder sludge. No evidence for acute dee cystitis.
[2021-09-22 13:38] LABS: Blood Urea Nitrogen 59 mg/dL (8-23)
== END 2021-09-22 12:38 | disposition home or self-care (01) ==
PROVIDERS: PCP Family Medicine; Visit Provider Urology
DX: R31.0 Gross hematuria (principal); K80.20 Calculus of gallbladder without cholecystitis without obstruction; K44.9 Diaphragmatic hernia without obstruction or gangrene; Z96.0 Presence of urogenital implants; N20.0 Calculus of kidney
CPT/HCPCS: 36415; 74176; 82565; 84520

== ENCOUNTER 2021-10-01 16:15 | Outpatient (CLI) | payer OTHER, SELFPAY ==
--- NOTE | 2021-10-01 16:27 | XR_ITS ---
WS: [id number] LEFT HAND: 3 VIEW(S) TECHNIQUE: PA, oblique and lateral. 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 Fingers are held in marked flexion contractures. Joint spaces are difficult to evaluate due to overla pping bone. Loss of the normal distal first phalanx. Interphalangeal joints are markedly narrowed. Lo ss of the normal joint spaces in the proximal and distal phalanges. Extensive vascular calcifications. XR/XR hand LT min 3V* [id number] IMPRESSION: Fingers are held in marked flexion contracture. Loss of the normal bone involvi ng the distal phalanx first finger.
--- NOTE | 2021-10-01 16:27 | XR_ITS ---
WS: [id number] RIGHT HAND: 3 VIEW(S) TECHNIQUE: PA, oblique and lateral. 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 There is significant bone loss of the distal fingers. The exact e xtent of the bone loss is difficult to tell due to overlapping. Majority of the second phalanx is abs ent. 50% of the distal first phalanx is absent. Tapering of the distal third and fourth fingers and p robably the fifth finger. Extensive vascular calcifications. XR/XR hand RT min 3V* [id number] IMPRESSION: 1. Marked flexion contractures of the fingers. 2. Loss of bone and abnormal shape of the distal phalanges. Destructive and pro gressive changes are more advanced than on 10/14/2015.
== END 2021-10-01 16:16 | disposition home or self-care (01) ==
PROVIDERS: PCP Family Medicine; Visit Provider Internal Medicine Rheumatology
DX: M25.50 Pain in unspecified joint (principal); Z79.899 Other long term (current) drug therapy
CPT/HCPCS: 73130

== ENCOUNTER → 2021-10-04 10:14 | Outpatient (BNVA) | payer OTHER, SELFPAY | PROVIDERS: PCP Family Medicine; Visit Provider Internal Medicine Rheumatology | DX: E11.618 Type 2 diabetes mellitus with other diabetic arthropathy (principal); E11.40 Type 2 diabetes mellitus with diabetic neuropathy, unspecified; E11.22 Type 2 diabetes mellitus with diabetic chronic kidney disease; N18.4 Chronic kidney disease, stage 4 (severe); Z79.4 Long term (current) use of insulin; Z93.59 Other cystostomy status; H54.40 Blindness, one eye, unspecified eye; Z89.519 Acquired absence of unspecified leg below knee | CPT/HCPCS: 99214 ==

== ENCOUNTER 2021-10-05 14:03 | Outpatient (CLI) | payer OTHER, SELFPAY | END 2021-10-05 14:04 | disposition home or self-care (01) | LOC: LAB 14:07 | PROVIDERS: PCP Family Medicine; Visit Provider Nurse Practitioner Family | DX: L98.499 Non-pressure chronic ulcer of skin of other sites with unspecified severity (principal) | CPT/HCPCS: 87070; 87077; 87186 ==

== ENCOUNTER → 2022-01-18 13:24 | Outpatient (BNVA) | payer OTHER, SELFPAY | PROVIDERS: PCP Family Medicine; Visit Provider Internal Medicine | DX: E11.40 Type 2 diabetes mellitus with diabetic neuropathy, unspecified (principal); E11.618 Type 2 diabetes mellitus with other diabetic arthropathy; N18.4 Chronic kidney disease, stage 4 (severe); E78.5 Hyperlipidemia, unspecified; Z87.891 Personal history of nicotine dependence; Z89.519 Acquired absence of unspecified leg below knee; Z79.4 Long term (current) use of insulin | CPT/HCPCS: 99214 ==